=== PATIENT | male | born 1965 | race Two or more races ===

== ENCOUNTER 2020-01-25 09:06 | Inpatient (IN) | payer BC, OTHER ==
[~2020-01-25] VITALS: Ht 175.3 cm; Wt 87.1 kg
[2020-01-25] MEDS ORDERED: ENOXAPARIN SOD 100 MG/1 ML SYRINGE SC ONE (09:45)
[2020-01-25] MEDS ORDERED: methylPREDNISolone SOD SUCC 125 MG/2 ML VL IV ONE (09:45)
[2020-01-25] MEDS ORDERED: ASCORBIC ACID 500 MG TAB PO ONE (09:45)
[2020-01-25] MEDS ORDERED: AZITHROMYCIN 500MG/ 250ML 250 ML IV ONE (09:45)
[2020-01-25] MEDS ORDERED: ZINC SULFATE 220mg CAP or TAB PO ONE (09:45)
[2020-01-25 11:43] LABS: Basophils # (auto) 0 10 ^3/uL (0-0.2); Basophils % (auto) 0.3 % (0.0-2.0); Eosinophils # (auto) 0 10 ^3/uL (0-0.8); Hemoglobin 16.2 g/dL (13.5-17.5); Lymphocytes # (auto) 0.8 10 ^3/uL (0.4-5.4); Lymphocytes % (auto) 17.5 % (10.0-50.0); Mean Corpuscular Hemoglobin 31.6 pg (28.0-32.0); Mean Corpuscular Hgb Conc. 34.5 g/dL (32.0-36.0); Mean Corpuscular Volume 91.6 fL (80.0-100.0); Monocytes # (auto) 0.4 10 ^3/uL (0-1.3); Monocytes % (auto) 8.4 % (0.0-12.0); Neutrophils # (auto) 3.3 10 ^3/uL (1.6-8.6); Neutrophils % (auto) 73.8 % (37.0-80.0); Nucleated Red Blood Cells % 0.5 %; Platelet Count (auto) 281 10^3/uL (140-450); Red Blood Cells 5.13 10^6/uL (4.5-5.90); Red Cell Distribution Width 13.4 % (11.8-14.3); White Blood Cell 4.4 10^3/uL (4.4-10.8)
[2020-01-25 12:02] LABS: Alanine Aminotransferase 149 U/L (16-61); Anion Gap 8 (5-15); Aspartate Aminotransferase 145 U/L (15-37); Blood Urea Nitrogen 16 mg/dL (7-18); Calcium 8.4 mg/dL (8.5-10.1); Carbon Dioxide 23 mmol/L (21-32); Chloride 105 mmol/L (98-107); GFR African American 86 mL/min; GFR Non-African American 71 mL/min; Glucose 104 mg/dL (74-106); Sodium 136 mmol/L (136-145)
[2020-01-25 12:07] LABS: Alkaline Phosphatase 126 U/L (45-117); Bilirubin, Total 0.3 mg/dL (0.2-1.0); Total Protein 7.6 g/dL (6.4-8.2)
[2020-01-25] MEDS ORDERED: LABETALOL HCL 5 MG/ML 4ML SYRINGE IV PRN (14:30)
[2020-01-25] MEDS ORDERED: MORPHINE SULF INJ 2 MG/ML SYRINGE 1ML IV PRN (14:30)
[2020-01-25] MEDS ORDERED: REMDESIVIR PER PHARMACY IV SCH (14:30)
[2020-01-25] MEDS ORDERED: NITROGLYCERIN 0.4 MG SL TAB SL PRN (14:30)
[2020-01-25] MEDS ORDERED: ACETAMINOPHEN 500 MG TAB PO PRN ×2 (14:30)
[2020-01-25] MEDS ORDERED: FLUT1SPR5 (16:42)
[2020-01-25] MEDS ORDERED: PANT40T PO (16:43)
[2020-01-25] MEDS ORDERED: LOSA-69 PO (16:43)
[2020-01-25] MEDS ORDERED: TAM04C PO (16:43)
[2020-01-25 18:30] LABS: Magnesium 2.3 mg/dL (1.6-2.6)
[2020-01-25 18:39] LABS: CRP High Sensitivity 9.74 mg/dL (< 0.3)
[2020-01-25] MEDS: ALBUTEROL SULF HFA 90MCG INH 200DOSE IN SCH (22:00)
[2020-01-25] MEDS: BUDESONIDE (INHALATION) 180 MCG IH IN SCH (22:00)
[2020-01-25] MEDS: ENOXAPARIN SOD 40 MG/0.4 ML SYRINGE SC SCH (22:00)
[2020-01-26 03:32] VITALS: BP 138/87
[2020-01-26] MEDS: ALBUTEROL SULF HFA 90MCG INH 200DOSE IN SCH (06:00)
[2020-01-26 06:23] LABS: Basophils # (auto) 0 10 ^3/uL (0-0.2); Basophils % (auto) 0.4 % (0.0-2.0); Eosinophils # (auto) 0 10 ^3/uL (0-0.8); Hematocrit 45.1 % (41.0-53.0); Hemoglobin 15.5 g/dL (13.5-17.5); Lymphocytes # (auto) 0.5 10 ^3/uL (0.4-5.4); Lymphocytes % (auto) 11.2 % (10.0-50.0); Mean Corpuscular Hemoglobin 31.6 pg (28.0-32.0); Mean Corpuscular Hgb Conc. 34.4 g/dL (32.0-36.0); Mean Corpuscular Volume 91.8 fL (80.0-100.0); Monocytes # (auto) 0.2 10 ^3/uL (0-1.3); Monocytes % (auto) 5.3 % (0.0-12.0); Neutrophils # (auto) 3.4 10 ^3/uL (1.6-8.6); Neutrophils % (auto) 83.1 % (37.0-80.0); Nucleated Red Blood Cells % 0.3 %; Platelet Count (auto) 294 10^3/uL (140-450); Red Blood Cells 4.91 10^6/uL (4.5-5.90); Red Cell Distribution Width 13.5 % (11.8-14.3); White Blood Cell 4.1 10^3/uL (4.4-10.8)
[2020-01-26 06:44] LABS: Albumin 2.8 g/dL (3.4-5.0); Calcium 8.1 mg/dL (8.5-10.1); Potassium 4.2 mmol/L (3.5-5.1)
[2020-01-26 06:46] LABS: BUN/Creatinine Ratio 18.3
[2020-01-26 06:49] LABS: Bilirubin, Total 0.4 mg/dL (0.2-1.0); Total Protein 7.6 g/dL (6.4-8.2)
[2020-01-26] MEDS: BUDESONIDE (INHALATION) 180 MCG IH IN SCH ×2 (07:27→20:29)
[2020-01-26] MEDS: DexAMETHasone SOD PHOS 10MG/1ML VIAL INJ IV SCH (08:38)
[2020-01-26] MEDS: ZINC SULFATE 220mg CAP or TAB PO SCH (08:38)
[2020-01-26] MEDS: CHOLECALCIFEROL (VITD3) 2,000 UNIT CAP PO SCH (08:38)
[2020-01-26] MEDS: ENOXAPARIN SOD 40 MG/0.4 ML SYRINGE SC SCH (08:38)
[2020-01-26] MEDS: FAMOTIDINE 20 MG TAB PO SCH (08:38)
[2020-01-26] MEDS: ASCORBIC ACID 1,000 MG TAB PO SCH (08:38)
[2020-01-26] MEDS ORDERED: cefTRIAXone 1GM/50ML D5W 50 ML IV SCH (09:00)
[2020-01-26] MEDS ORDERED: AZITHROMYCIN 500MG/D5WorNS 250ml IV SCH (10:00)
[2020-01-26] MEDS ORDERED: REMDESIVIR PER PHARMACY IV SCH (12:15)
[2020-01-26] MEDS ORDERED: DEXTROSE (50%) 50ML SYRG IV PRN (12:15)
[2020-01-26] MEDS ORDERED: FUROSEMIDE 20 MG/2 ML VIAL IV ONE ×2 (12:15→12:45)
[2020-01-26] MEDS ORDERED: POTASSIUM CHL 10 Meq TABLET PO ONE (12:15)
[2020-01-26] MEDS ORDERED: IOHEXOL 350 MG/ML 100ML IJ ONE (12:23)
[2020-01-26] MEDS ORDERED: DOXYCYCLINE 100 MG TAB/CAP PO ONE (12:45)
[2020-01-26] MEDS ORDERED: ENOXAPARIN SOD 100 MG/1 ML SYRINGE SC ONE (12:45)
[2020-01-26] MEDS ORDERED: REMDESIVIR 200 MG in NS 210ml LOADING DOSE ADULT IV ONE (17:00)
[2020-01-26] MEDS: InsuLIN REG 1unit/0.01ml Soln (100units/ml) SC SCH ×2 (17:00→22:47)
[2020-01-26] MEDS: ACCU-CHEK COMFORT CURVE STRIP VI SCH ×2 (17:17→22:50)
[2020-01-26] MEDS: TAMSULOSIN HYDROCHLORIDE 0.4 MG CAP PO SCH (18:00)
[2020-01-26] MEDS: ALBUTEROL SULF HFA 90MCG INH 200DOSE IN PRN (20:29)
[2020-01-26 21:56] LABS: Amphetamine Screen, Urine NEGATIVE (NEGATIVE); Barbiturate Scree,Urine NEGATIVE (NEGATIVE); Benzodiazephine Screen, Urine NEGATIVE (NEGATIVE); Cannabinoid Screen, Urine NEGATIVE (NEGATIVE); Cocaine Screen, Urine NEGATIVE (NEGATIVE); Opiate Scree,Urine NEGATIVE (NEGATIVE); Phencyclidine Screen, Urine NEGATIVE (NEGATIVE)
[2020-01-26 22:55] VITALS: BP 125/84
--- NOTE | 2020-01-26 22:55 | NUR ---
Telemetry admit from ER to [facility]- Unit WILDER ELLIOTT admitted to Telemetry unit after SBAR received. Patient oriented to YOLANDA JEONG, primary RN, unit, room, bed, and unit policies regarding patient care and visiting hours. Patient now on continuous telemetry monitoring, tele box # 17 and telemetry reading on arrival to unit is sinus rhythm. Patient is alert and oriented x4. Patient reports a headache (3/10), will medicate patient as ordered by MD. Patient reports mild shortness of breath at rest and more so with exertion. Patient is on 15L/min nonrebreather, SPO2: 94% at this time. No use of accessory muscles noted at this time. Instructed patient on plan of care and encouraged patient to call for assistance as needed, patient verbalized understanding. Bed is locked in lowest position, side rails x 2 are up, and call light is within reach.
[2020-01-27] VITALS (9 sets, daily range): BP systolic 96–127; BP diastolic 54–82
--- NOTE | 2020-01-27 00:30 | NUR ---
IV Insertion IV access obtained, via clean sterile technique by inserting 20 gauge catheter at left forearm after 1 attempt. IV secured properly. No trauma to site. Patient tolerated well. IV removal IV to right forearm DC'd due to IV leaking. IV DC'd with clean sterile technique, catheter fully intact. Pressure dressing applied to site. Patient tolerated well.
[2020-01-27] MEDS: ENOXAPARIN SOD 100 MG/1 ML SYRINGE SC SCH ×3 (01:11→22:10)
[2020-01-27] MEDS: DOXYCYCLINE 100 MG TAB/CAP PO SCH ×3 (01:11→22:10)
[2020-01-27] MEDS ORDERED: ALBUAER3 IN (01:52)
[2020-01-27] MEDS ORDERED: FLUT250M2 INH (01:52)
--- NOTE | 2020-01-27 02:09 | NUR ---
Convalescent Plasma Convalescent plasma finished transfusing at this time. Patient tolerated well. No sign/symptoms of distress noted or verbalized during or post transfusion. No adverse effects reported during transfusion or post transfusion.
[2020-01-27] MEDS: InsuLIN REG 1unit/0.01ml Soln (100units/ml) SC SCH ×4 (06:40→22:12)
[2020-01-27] MEDS: ACCU-CHEK COMFORT CURVE STRIP VI SCH ×4 (06:40→22:05)
[2020-01-27] MEDS: BUDESONIDE (INHALATION) 180 MCG IH IN SCH ×2 (07:16→22:00)
[2020-01-27] MEDS: ALBUTEROL SULF HFA 90MCG INH 200DOSE IN PRN (07:16)
[2020-01-27 07:39] LABS: Magnesium 2.3 mg/dL (1.6-2.6); Potassium 3.8 mmol/L (3.5-5.1)
[2020-01-27 07:46] LABS: Albumin 2.7 g/dL (3.4-5.0); BUN/Creatinine Ratio 27.4; Bilirubin, Total 0.4 mg/dL (0.2-1.0); Calcium 8.2 mg/dL (8.5-10.1); Total Protein 7.2 g/dL (6.4-8.2)
--- NOTE | 2020-01-27 07:50 | NUR ---
OPENING NOTE ASSUMED CARE OF PT. ALERT AND ORIENTED. NO S/S OF SOB/DISTRESS NOTED. BED SET TO LOWEST POSITION/LOCKED, BEDSIDE RAIL UP X2, CALL LIGHT WITHIN REACH. INSTRUCTED PT TO CALL FOR ASSISTANCE. UPDATE ON POC. PATIENT VERBALIZED UNDERSTANDING. WILL CONTINUE TO MONITOR Q1HR AND PRN.
[2020-01-27] MEDS: DexAMETHasone SOD PHOS 10MG/1ML VIAL INJ IV SCH (10:44)
[2020-01-27] MEDS: ZINC SULFATE 220mg CAP or TAB PO SCH (10:45)
[2020-01-27] MEDS: FUROSEMIDE 20 MG/2 ML VIAL IV SCH (10:45)
[2020-01-27] MEDS: FAMOTIDINE 20 MG TAB PO SCH (10:45)
[2020-01-27] MEDS: CHOLECALCIFEROL (VITD3) 2,000 UNIT CAP PO SCH (10:46)
[2020-01-27] MEDS: ASCORBIC ACID 1,000 MG TAB PO SCH (10:46)
[2020-01-27] MEDS: POTASSIUM CHL 10 Meq TABLET PO SCH (10:56)
[2020-01-27] MEDS: REMDESIVIR 100 MG in SODIUM CHL 0.9% 250 ML IV SCH (17:28)
--- NOTE | 2020-01-27 17:30 | NUR ---
REMDESIVIR PRE-INFUSION VS 96/54 [facility] 79 BPM SPO2 95% WILL CONTINUE TO MONITOR.
[2020-01-27] MEDS: TAMSULOSIN HYDROCHLORIDE 0.4 MG CAP PO SCH (17:36)
--- NOTE | 2020-01-27 17:45 | NUR ---
REMDESIVIR 15 MIN-INFUSION VS 95/58 [facility] 75 BPM SPO2 96% NO S/S OF SOB/DISTRESS NOTED. WILL CONTINUE TO MONITOR.
[2020-01-28 05:30] VITALS: BP 117/80
[2020-01-28] MEDS: ACCU-CHEK COMFORT CURVE STRIP VI SCH ×4 (06:32→22:56)
[2020-01-28] MEDS: InsuLIN REG 1unit/0.01ml Soln (100units/ml) SC SCH ×4 (06:33→22:56)
[2020-01-28] MEDS: BUDESONIDE (INHALATION) 180 MCG IH IN SCH ×2 (07:20→19:58)
[2020-01-28 08:25] VITALS: BP 114/77
[2020-01-28] MEDS: ZINC SULFATE 220mg CAP or TAB PO SCH (09:56)
[2020-01-28] MEDS: FUROSEMIDE 20 MG/2 ML VIAL IV SCH (09:56)
[2020-01-28] MEDS: DexAMETHasone SOD PHOS 10MG/1ML VIAL INJ IV SCH (09:56)
[2020-01-28] MEDS: POTASSIUM CHL 10 Meq TABLET PO SCH (09:57)
[2020-01-28] MEDS: DOXYCYCLINE 100 MG TAB/CAP PO SCH ×2 (10:00→22:56)
[2020-01-28] MEDS: FAMOTIDINE 20 MG TAB PO SCH (10:00)
[2020-01-28] MEDS: ASCORBIC ACID 1,000 MG TAB PO SCH (10:00)
[2020-01-28] MEDS: ENOXAPARIN SOD 100 MG/1 ML SYRINGE SC SCH ×2 (10:01→22:57)
[2020-01-28] MEDS: CHOLECALCIFEROL (VITD3) 2,000 UNIT CAP PO SCH (10:01)
--- NOTE | 2020-01-28 12:04 | NUR ---
Nutrition Assessment Est energy needs 4645-5130 kcal (18-20 kcal/kg BW 99.2kg) Est protein needs 73-95g (1-1.3g/kg IBW 73kg) Will monitor and reassess prn. Addendum: 01/28/20 at [address] Amended: Links added.
[2020-01-28 12:21] VITALS: BP 111/72
[2020-01-28] MEDS ORDERED: THIAMINE HCL 100 MG TAB PO ONE (13:30)
[2020-01-28] MEDS: ALBUTEROL SULF HFA 90MCG INH 200DOSE IN PRN ×2 (15:57→19:58)
[2020-01-28 16:44] VITALS: BP 118/76
[2020-01-28] MEDS: REMDESIVIR 100 MG in SODIUM CHL 0.9% 250 ML IV SCH (17:30)
--- NOTE | 2020-01-28 17:30 | NUR ---
REMDESIVIR PRE-INFUSION VS 118/76 [facility] 81 BPM SPO2 98% WILL CONTINUE TO MONITOR.
[2020-01-28] MEDS: TAMSULOSIN HYDROCHLORIDE 0.4 MG CAP PO SCH (17:41)
--- NOTE | 2020-01-28 17:45 | NUR ---
REMDESIVIR 15 MIN-INFUSION VS 110/76 [facility] 74 BPM SPO2 92% NO S/S OF SOB/DISTRESS NOTED. WILL CONTINUE TO MONITOR.
[2020-01-28 21:46] VITALS: BP 124/77
[2020-01-29] MEDS: ONDANSETRON HCL 4 MG/2 ML VIAL IV PRN ×3 (00:20→11:04)
[2020-01-29 05:00] VITALS: BP 115/71
[2020-01-29 06:10] LABS: Albumin 2.6 g/dL (3.4-5.0); Calcium 8.2 mg/dL (8.5-10.1); Magnesium 2.7 mg/dL (1.6-2.6); Potassium 3.7 mmol/L (3.5-5.1)
[2020-01-29 06:13] LABS: Bilirubin, Total 0.6 mg/dL (0.2-1.0); Total Protein 6.8 g/dL (6.4-8.2)
--- NOTE | 2020-01-29 06:50 | NUR ---
Patient reporting 6/10 pain to chest only when coughing. Refusing [place], requesting Tylenol, will administer as ordered (see emar) and continue to monitor.
[2020-01-29] MEDS: InsuLIN REG 1unit/0.01ml Soln (100units/ml) SC SCH ×4 (06:53→23:30)
[2020-01-29] MEDS: ACCU-CHEK COMFORT CURVE STRIP VI SCH ×4 (06:53→23:16)
--- NOTE | 2020-01-29 07:20 | NUR ---
Patient lying in bed, awake and alert, no s/s of distress. Call light within reach. Care endorsed to genevieve CRUM. Addendum: 01/29/20 at 0754 by YRIS CONTRERAS RN RN ADDITION: Patient maintaining 88% - 90% pulse oxygenation throughout shift on 12 liters/minute via nonrebreather, unable to titrate oxygen down during NOC shift, genevieve CRUM aware.
[2020-01-29 07:38] LABS: BUN/Creatinine Ratio 37.9
[2020-01-29] MEDS: BUDESONIDE (INHALATION) 180 MCG IH IN SCH ×2 (07:45→20:24)
[2020-01-29 09:00] VITALS: BP 121/74
[2020-01-29] MEDS: DexAMETHasone SOD PHOS 10MG/1ML VIAL INJ IV SCH (10:28)
[2020-01-29] MEDS: FUROSEMIDE 20 MG/2 ML VIAL IV SCH (10:28)
[2020-01-29] MEDS: THIAMINE HCL 100 MG TAB PO SCH (10:28)
[2020-01-29] MEDS: ASCORBIC ACID 1,000 MG TAB PO SCH (10:29)
[2020-01-29] MEDS: FAMOTIDINE 20 MG TAB PO SCH (10:29)
[2020-01-29] MEDS: DOXYCYCLINE 100 MG TAB/CAP PO SCH (10:29)
[2020-01-29] MEDS: POTASSIUM CHL 10 Meq TABLET PO SCH (10:29)
[2020-01-29] MEDS: ZINC SULFATE 220mg CAP or TAB PO SCH (10:29)
[2020-01-29] MEDS: CHOLECALCIFEROL (VITD3) 2,000 UNIT CAP PO SCH (10:30)
[2020-01-29] MEDS: ENOXAPARIN SOD 100 MG/1 ML SYRINGE SC SCH ×2 (10:30→23:15)
[2020-01-29] MEDS: Ensure HIGH Protein Vanilla 8oz Bottle PO SCH ×2 (12:00→18:06)
[2020-01-29 13:00] VITALS: BP 122/74
[2020-01-29 17:00] VITALS: BP 117/79
--- NOTE | 2020-01-29 17:00 | NUR ---
REMDESIVIR PRE-INFUSION VS 117/79 [facility] 85 BPM SPO2 91% WILL CONTINUE TO MONITOR.
[2020-01-29] MEDS: REMDESIVIR 100 MG in SODIUM CHL 0.9% 250 ML IV SCH (17:07)
[2020-01-29] MEDS: TAMSULOSIN HYDROCHLORIDE 0.4 MG CAP PO SCH (17:07)
--- NOTE | 2020-01-29 17:15 | NUR ---
REMDESIVIR 15 MIN-INFUSION VS 122/86 [facility] 82 BPM SPO2 93% NO S/S OF SOB/DISTRESS NOTED. WILL CONTINUE TO MONITOR.
[2020-01-29] MEDS: PIPERACILLIN-TAZOB 3.375GM 100 ML IV SCH ×2 (18:06→23:55)
[2020-01-29] MEDS: ALBUTEROL SULF HFA 90MCG INH 200DOSE IN PRN (20:24)
[2020-01-29 22:00] VITALS: BP 121/72
--- NOTE | 2020-01-30 03:00 | NUR ---
Entered room after patient pressed the call light stating he "couldn't catch his breath". Patient sitting up in bed at 90 degrees, respirations at 28 breaths per minute, pulse oxygenation maintaining at 84-86%. Patient appeared anxious and was able to slow his respirations down to 20 breaths per minute after coaching, oxygenation also marlen to 90%-93%. Patient requested pain medication for chest pain, reports again that pain is only on deep inspiration and came on after excessive coughing. Will medicate for pain as ordered (see emar) and continue to monitor.
[2020-01-30] MEDS: MORPHINE SULF INJ 2 MG/ML SYRINGE 1ML IV PRN ×2 (03:20→18:04)
[2020-01-30 05:00] VITALS: BP 117/73
[2020-01-30] MEDS: PIPERACILLIN-TAZOB 3.375GM 100 ML IV SCH ×3 (06:27→18:10)
[2020-01-30] MEDS: ACCU-CHEK COMFORT CURVE STRIP VI SCH ×4 (06:27→22:06)
[2020-01-30 06:33] LABS: Potassium 3.9 mmol/L (3.5-5.1)
[2020-01-30] MEDS: InsuLIN REG 1unit/0.01ml Soln (100units/ml) SC SCH ×4 (06:41→22:10)
[2020-01-30 06:50] LABS: Albumin 2.5 g/dL (3.4-5.0); BUN/Creatinine Ratio 33.3; Bilirubin, Total 0.8 mg/dL (0.2-1.0); Calcium 8.2 mg/dL (8.5-10.1)
[2020-01-30] MEDS: BUDESONIDE (INHALATION) 180 MCG IH IN SCH ×2 (06:50→19:38)
--- NOTE | 2020-01-30 07:15 | NUR ---
Patient lying in bed, awake and alert, no s/s of distress. Call light within reach. Care endorsed to dayshift RN.
[2020-01-30 08:00] VITALS: BP 123/74
[2020-01-30] MEDS: Ensure HIGH Protein Vanilla 8oz Bottle PO SCH ×3 (08:00→18:02)
[2020-01-30] MEDS: ZINC SULFATE 220mg CAP or TAB PO SCH (10:00)
[2020-01-30] MEDS: CHOLECALCIFEROL (VITD3) 2,000 UNIT CAP PO SCH (10:00)
[2020-01-30] MEDS: FAMOTIDINE 20 MG TAB PO SCH (10:00)
[2020-01-30] MEDS: THIAMINE HCL 100 MG TAB PO SCH (10:00)
[2020-01-30] MEDS: ASCORBIC ACID 1,000 MG TAB PO SCH (10:00)
[2020-01-30] MEDS: DexAMETHasone SOD PHOS 10MG/1ML VIAL INJ IV SCH (10:25)
[2020-01-30 10:26] LABS: Hepatitis B Surface Antibody Negative
[2020-01-30] MEDS: FUROSEMIDE 20 MG/2 ML VIAL IV SCH (10:27)
[2020-01-30] MEDS: POTASSIUM CHL 10 Meq TABLET PO SCH (10:28)
[2020-01-30] MEDS: ENOXAPARIN SOD 100 MG/1 ML SYRINGE SC SCH ×2 (10:29→21:43)
[2020-01-30 10:59] LABS: Hepatitis A Total Antibody Positive
[2020-01-30 12:00] VITALS: BP 121/74
[2020-01-30 12:44] LABS: Hepatitis B Core Total AB Negative; Hepatitis B Surface Antigen Negative (Negative)
[2020-01-30 12:45] LABS: Hepatitis C Antibody Negative (Negative)
[2020-01-30 17:00] VITALS: BP 120/71
[2020-01-30] MEDS: REMDESIVIR 100 MG in SODIUM CHL 0.9% 250 ML IV SCH (17:30)
--- NOTE | 2020-01-30 17:30 | NUR ---
REMDESIVIR PRE-INFUSION VS 120/71 [facility] 77 BPM SPO2 93% WILL CONTINUE TO MONITOR.
--- NOTE | 2020-01-30 17:45 | NUR ---
REMDESIVIR 15 MIN-INFUSION VS 110/75 [facility] 78 BPM SPO2 91% NO S/S OF SOB/DISTRESS NOTED. WILL CONTINUE TO MONITOR.
[2020-01-30] MEDS: TAMSULOSIN HYDROCHLORIDE 0.4 MG CAP PO SCH (17:56)
--- NOTE | 2020-01-30 19:25 | NUR ---
Opening Shift Note Assumed care of patient, awake and alert. On 15 L NRB. Updated on POC and to call for assist PRN, patient verbalized understanding. Bed in lowest and locked position, call light within reach, will continue to monitor for changes Q1hr and PRN.
--- NOTE | 2020-01-30 19:30 | NUR ---
REMDESIVIR POST-INFUSION VS 118/75 [facility] 85 BPM SPO2 92% WILL CONTINUE TO MONITOR.
[2020-01-30] MEDS: ALBUTEROL SULF HFA 90MCG INH 200DOSE IN PRN (19:39)
[2020-01-30 22:00] VITALS: BP 115/77
[2020-01-31] MEDS: PIPERACILLIN-TAZOB 3.375GM 100 ML IV SCH ×4 (00:22→17:47)
[2020-01-31 05:51] VITALS: BP 116/77
--- NOTE | 2020-01-31 06:00 | NUR ---
Respiratory note: PT SPO2 IN THE LOW 80'S WITH 15L NRB. PT PLACED ON ADDITIONAL O2 OF 15L OXYMIZER SPO2 INCREASED TO 88%. PT WAS EDUCATED ON THE IMPORTANCE OF PRONING. PT STATED "ABSOLUTELY NOT I WONT BE ABLE TO BREATH." WILL CONTINUE TO MONITOR PT.
--- NOTE | 2020-01-31 06:05 | NUR ---
Patient desaturated to 80's when bed linens changed. Maintained O2 at 15 Lpm/NRB, head elevated to 90 degrees, O2 Sat coming up to 87%-89%. Will continue to monitor
[2020-01-31] MEDS: ACCU-CHEK COMFORT CURVE STRIP VI SCH ×4 (06:15→21:49)
[2020-01-31] MEDS: InsuLIN REG 1unit/0.01ml Soln (100units/ml) SC SCH ×4 (06:16→21:56)
[2020-01-31] MEDS: Ensure HIGH Protein Vanilla 8oz Bottle PO SCH ×3 (08:00→17:47)
[2020-01-31 08:17] LABS: Basophils # (auto) 0 10 ^3/uL (0-0.2); Basophils % (auto) 0.1 % (0.0-2.0); Eosinophils # (auto) 0 10 ^3/uL (0-0.8); Eosinophils % (auto) 0.1 % (0.0-7.0); Hemoglobin 16.1 g/dL (13.5-17.5); Lymphocytes # (auto) 1.1 10 ^3/uL (0.4-5.4); Lymphocytes % (auto) 9.5 % (10.0-50.0); Mean Corpuscular Hemoglobin 30.8 pg (28.0-32.0); Mean Corpuscular Hgb Conc. 33.6 g/dL (32.0-36.0); Mean Corpuscular Volume 91.5 fL (80.0-100.0); Monocytes # (auto) 0.9 10 ^3/uL (0-1.3); Monocytes % (auto) 7.6 % (0.0-12.0); Neutrophils % (auto) 82.7 % (37.0-80.0); Nucleated Red Blood Cells % 0.1 %; Red Blood Cells 5.24 10^6/uL (4.5-5.90); Red Cell Distribution Width 13.5 % (11.8-14.3); White Blood Cell 12.1 10^3/uL (4.4-10.8)
[2020-01-31 08:35] LABS: Albumin 2.4 g/dL (3.4-5.0); Anion Gap 9 (5-15); Blood Urea Nitrogen 35 mg/dL (7-18); Calcium 8.4 mg/dL (8.5-10.1); Carbon Dioxide 26 mmol/L (21-32); Chloride 103 mmol/L (98-107); Glucose 118 mg/dL (74-106); Magnesium 2.7 mg/dL (1.6-2.6); Potassium 4.1 mmol/L (3.5-5.1); Sodium 138 mmol/L (136-145)
[2020-01-31 09:00] VITALS: BP 114/76
[2020-01-31 09:01] LABS: Alanine Aminotransferase 66 U/L (16-61); Alkaline Phosphatase 113 U/L (45-117); Aspartate Aminotransferase 28 U/L (15-37); BUN/Creatinine Ratio 27.6; Bilirubin, Total 0.7 mg/dL (0.2-1.0); CRP High Sensitivity 9.18 mg/dL (< 0.3); GFR African American 76 mL/min; GFR Non-African American 63 mL/min; Lactate Dehydrogenase 598 U/L (87-241); Total Protein 7.1 g/dL (6.4-8.2)
[2020-01-31 09:02] LABS: Platelet Count (auto) 618 10^3/uL (140-450)
--- NOTE | 2020-01-31 11:00 | NUR ---
Space Physicist at bedside MD Jesus at bedside aware of patient's status. Patient refusing proning or turning on his side stating "is very uncomfortable" despite education provided regarding benefits of treatment. Cont to monitor
[2020-01-31] MEDS: DexAMETHasone SOD PHOS 10MG/1ML VIAL INJ IV SCH (11:56)
[2020-01-31] MEDS: ZINC SULFATE 220mg CAP or TAB PO SCH (11:57)
[2020-01-31] MEDS: CHOLECALCIFEROL (VITD3) 2,000 UNIT CAP PO SCH (11:57)
[2020-01-31] MEDS: FAMOTIDINE 20 MG TAB PO SCH (11:57)
[2020-01-31] MEDS: POTASSIUM CHL 10 Meq TABLET PO SCH (11:57)
[2020-01-31] MEDS: ASCORBIC ACID 1,000 MG TAB PO SCH (11:57)
[2020-01-31] MEDS: THIAMINE HCL 100 MG TAB PO SCH (11:57)
[2020-01-31] MEDS: ENOXAPARIN SOD 100 MG/1 ML SYRINGE SC SCH ×2 (11:58→21:50)
[2020-01-31] MEDS: FUROSEMIDE 20 MG/2 ML VIAL IV SCH (12:00)
[2020-01-31 13:00] VITALS: BP 114/82
--- NOTE | 2020-01-31 14:07 | NUR ---
Nutrition Followup Notes Pt wt is 96.7 kg Pt is positive for COVID, in isolation. Pt is with a Cardiac 2gNa diet, appetite is poor aeb ave <30% PO intake over 3 days. Per notes, pt is with no s/s of distress or pain. Est energy needs 9902-3462 kcal (18-20 kcal/kg BW 99.2kg) Est protein needs 73-95g (1-1.3g/kg IBW 73kg) Will monitor and reassess prn. LABS: BUN 35 H, GLUC 118 H, CA 8.4 H, ALB 2.4 L GI: Pt had 1 BM on 01/29 per RN doc BS: 17 mod risk. Refer to wound assessment report for further details PES: Obesity r/t caloric intake in excess of needs aeb pt with a BMI of 32.3kg/m2 Comments Will continue to monitor PO status, skin status, pertinent labs and weight trends. Will f/u in 3-5 days 1) Continue to monitor po intake, labs ,skin 2) Refer pt to OPD on DC 3) Continue current plan of care
[2020-01-31] MEDS: TAMSULOSIN HYDROCHLORIDE 0.4 MG CAP PO SCH (17:47)
--- NOTE | 2020-01-31 18:20 | NUR ---
Patient assisted up to bedside commode tolerating well saturation 92% on non rebreather and Oxymizer. Call light within reach
--- NOTE | 2020-01-31 18:45 | NUR ---
Patient continues to refuse proning despite multiple times encouraging him. Call light within reach.
--- NOTE | 2020-01-31 19:00 | NUR ---
Patient care endorsed endorsed care to Cele calvert. Patient sitting up in bed no acute distress or sob noted currently on non rebreather and oxymizer saturation 92%. Call light within reach.
--- NOTE | 2020-01-31 19:30 | NUR ---
Opening Shift Note Assumed care of patient. Patient is awake and alert, oriented X 4. No S/S of respiratory distress. Respirations are not labored. Patient denies pain at this time. Bed placed in lowest locked position, bed rails up x 2, and call light within reach. POC discussed; patient instructed to call for assistance PRN. Will continue to monitor for changes Q1hr and PRN.
[2020-01-31 20:00] VITALS: BP 111/76
[2020-01-31 22:00] VITALS: BP 111/76
[2020-01-31] MEDS: ALBUTEROL SULF HFA 90MCG INH 200DOSE IN PRN (22:40)
[2020-01-31] MEDS: BUDESONIDE (INHALATION) 180 MCG IH IN SCH (22:40)
[2020-02-01] VITALS (11 sets, daily range): BP systolic 95–117; BP diastolic 52–82
[2020-02-01] MEDS: PIPERACILLIN-TAZOB 3.375GM 100 ML IV SCH ×5 (01:39→23:30)
--- NOTE | 2020-02-01 04:55 | NUR ---
CC Convalescence plasma infusion started at 0432. Patient's baseline VS WNL. Will continue to monitor. No s/s of adverse reaction noted or reported after 15 min of infusion.
--- NOTE | 2020-02-01 05:35 | NUR ---
Convalescent Plasma Convalescent plasma finished transfusing at 0531. Patient tolerated well. No s/s of adverse reaction noted or reported. VS is WNL BP 111/69 HR 70, RR19. Will continue to monitor.
[2020-02-01] MEDS: ACCU-CHEK COMFORT CURVE STRIP VI SCH ×4 (06:46→22:23)
[2020-02-01] MEDS: InsuLIN REG 1unit/0.01ml Soln (100units/ml) SC SCH ×4 (06:47→22:00)
[2020-02-01 07:51] LABS: Albumin 2.4 g/dL (3.4-5.0); Calcium 8.1 mg/dL (8.5-10.1)
[2020-02-01 07:53] LABS: BUN/Creatinine Ratio 32.1
[2020-02-01 07:54] LABS: Basophils # (auto) 0 10 ^3/uL (0-0.2); Eosinophils # (auto) 0 10 ^3/uL (0-0.8); Mean Corpuscular Hemoglobin 31.4 pg (28.0-32.0); Mean Corpuscular Hgb Conc. 34.6 g/dL (32.0-36.0)
[2020-02-01 07:56] LABS: Bilirubin, Total 0.6 mg/dL (0.2-1.0)
[2020-02-01 07:57] LABS: Hematocrit 43.9 % (41.0-53.0); Hemoglobin 15.2 g/dL (13.5-17.5); Lymphocytes # (auto) 0.5 10 ^3/uL (0.4-5.4); Lymphocytes % (auto) 5.6 % (10.0-50.0); Mean Corpuscular Volume 90.8 fL (80.0-100.0); Monocytes # (auto) 0.3 10 ^3/uL (0-1.3); Monocytes % (auto) 3.8 % (0.0-12.0); Neutrophils # (auto) 7.4 10 ^3/uL (1.6-8.6); Neutrophils % (auto) 90.6 % (37.0-80.0); Nucleated Red Blood Cells % 0.3 %; Platelet Count (auto) 584 10^3/uL (140-450); Red Blood Cells 4.84 10^6/uL (4.5-5.90); Red Cell Distribution Width 13.2 % (11.8-14.3); White Blood Cell 8.2 10^3/uL (4.4-10.8)
[2020-02-01] MEDS: Ensure HIGH Protein Vanilla 8oz Bottle PO SCH ×3 (08:00→18:00)
[2020-02-01] MEDS: BUDESONIDE (INHALATION) 180 MCG IH IN SCH ×2 (10:00→20:16)
[2020-02-01] MEDS: ZINC SULFATE 220mg CAP or TAB PO SCH (10:30)
[2020-02-01] MEDS: FUROSEMIDE 20 MG/2 ML VIAL IV SCH (10:30)
[2020-02-01] MEDS: DexAMETHasone SOD PHOS 10MG/1ML VIAL INJ IV SCH (10:30)
[2020-02-01] MEDS: THIAMINE HCL 100 MG TAB PO SCH (10:30)
[2020-02-01] MEDS: FAMOTIDINE 20 MG TAB PO SCH (10:31)
[2020-02-01] MEDS: POTASSIUM CHL 10 Meq TABLET PO SCH (10:31)
[2020-02-01] MEDS: ASCORBIC ACID 1,000 MG TAB PO SCH (10:31)
[2020-02-01] MEDS: CHOLECALCIFEROL (VITD3) 2,000 UNIT CAP PO SCH (10:32)
[2020-02-01] MEDS: ENOXAPARIN SOD 100 MG/1 ML SYRINGE SC SCH ×2 (10:32→22:27)
--- NOTE | 2020-02-01 11:45 | NUR ---
at bedside MD Butler at bedside aware of patient's status. Patient currently on 15L non rebreather and 15L oxymizer at this time sat 94%. Patient encouraged to prone multiple times, MD Butler had long discussion with him regarding benefits of proning but patient refusing at this time. Will continue to encourage patient. Cont to monitor
--- NOTE | 2020-02-01 12:13 | NUR ---
Patient removed non rebreather states "I don't feel like I need more oxygen" saturation noted at >88% at 15L oxymizer. Patient agreed to turn to his right side at this time. Patient refusing proning at this time but states "later". R.T. notified and per Disha as long as pt remains >88% is okay to be off the non rebreather. Non rebreather at bedside available if needed at bedside. Will cont to monitor
--- NOTE | 2020-02-01 13:22 | NUR ---
Patient placed back on non rebreather at 15L after he was noted to be 81% on only 15L oxymizer. Patient states he feels "a little sob". Patient saturation >91% after non rebreather at 15L and oxymizer at 15L. Cont to monitor closely
[2020-02-01] MEDS ORDERED: FUROSEMIDE 20 MG/2 ML VIAL IV ONE (14:15)
--- NOTE | 2020-02-01 15:31 | NUR ---
Patient tolerating Remdesivir well no acute distress or sob noted BP 124/76 HR 71
[2020-02-01] MEDS: TAMSULOSIN HYDROCHLORIDE 0.4 MG CAP PO SCH (18:00)
--- NOTE | 2020-02-01 19:45 | NUR ---
Opening Shift Note Assumed care of patient, awake and alert. No S/S of distress/SOB or pain noted. Instructed on POC and to call for assist PRN. Bed is in lowest locked position with bed rails up x2 and call light is within reach of the patient.
[2020-02-01] MEDS: ALBUTEROL SULF HFA 90MCG INH 200DOSE IN PRN (20:17)
[2020-02-02] MEDS: PIPERACILLIN-TAZOB 3.375GM 100 ML IV SCH ×4 (05:43→23:34)
[2020-02-02 06:27] VITALS: BP 100/64
[2020-02-02] MEDS: ACCU-CHEK COMFORT CURVE STRIP VI SCH ×4 (06:36→22:20)
[2020-02-02] MEDS: InsuLIN REG 1unit/0.01ml Soln (100units/ml) SC SCH ×4 (06:38→22:27)
[2020-02-02] MEDS: BUDESONIDE (INHALATION) 180 MCG IH IN SCH ×2 (07:45→20:49)
[2020-02-02] MEDS: Ensure HIGH Protein Vanilla 8oz Bottle PO SCH ×3 (08:00→17:47)
[2020-02-02 09:00] VITALS: BP 108/70
[2020-02-02] MEDS: ALBUTEROL SULF HFA 90MCG INH 200DOSE IN PRN ×2 (09:29→20:49)
[2020-02-02] MEDS: THIAMINE HCL 100 MG TAB PO SCH (10:01)
[2020-02-02] MEDS: DexAMETHasone SOD PHOS 10MG/1ML VIAL INJ IV SCH (10:01)
[2020-02-02] MEDS: ZINC SULFATE 220mg CAP or TAB PO SCH (10:01)
[2020-02-02] MEDS: POTASSIUM CHL 10 Meq TABLET PO SCH (10:01)
[2020-02-02] MEDS: FUROSEMIDE 40 MG/4 ML VIAL IV SCH (10:01)
[2020-02-02] MEDS: FAMOTIDINE 20 MG TAB PO SCH (10:02)
[2020-02-02] MEDS: ASCORBIC ACID 1,000 MG TAB PO SCH (10:02)
[2020-02-02] MEDS: ENOXAPARIN SOD 100 MG/1 ML SYRINGE SC SCH ×2 (10:03→22:20)
[2020-02-02] MEDS: CHOLECALCIFEROL (VITD3) 2,000 UNIT CAP PO SCH (10:03)
--- NOTE | 2020-02-02 10:24 | NUR ---
Patient agreeing to prone at this time. Patient assisted completely on his stomach and saturation noted to have decreased to 82%. After patient was instructed to cough and deep breath multiple times saturation slowly improved up to 91%. Patient encouraged to remain prone. Currently on 15L oxymizer and 15L non rebreather. Will cont to monitor.
--- NOTE | 2020-02-02 10:40 | NUR ---
Patient is prone and maintaining oxygen at 94%. Cont to monitor
--- NOTE | 2020-02-02 11:15 | NUR ---
at bedside MD Jesus at bedside, pt laying on his back now saturation 92%. Patient states he will try proning again later. Per MD Jesus, titrate patient's oxygen. Patient decreased to <90% pt placed back on 15L oxymizer and 15L non rebreather. Will cont to monitor
--- NOTE | 2020-02-02 12:38 | NUR ---
Spoke to patient's after password verified and updated her on POC and status. Cont to monitor.
[2020-02-02 13:00] VITALS: BP 100/67
[2020-02-02 16:39] VITALS: BP 116/74
[2020-02-02] MEDS: TAMSULOSIN HYDROCHLORIDE 0.4 MG CAP PO SCH (17:47)
--- NOTE | 2020-02-02 17:47 | NUR ---
Patient encouraged and agreed to prone at this time. Patient saturation improved to 96% and sustaining at this level. Will cont to monitor.
--- NOTE | 2020-02-02 19:00 | NUR ---
Patient care endorsed endorsed care to Caitlyn calvert, patient laying on his back again in bed no acute distress. Saturation noted 94%. Call light within reach.
[2020-02-02 22:00] VITALS: BP 109/78
[2020-02-03] MEDS: PIPERACILLIN-TAZOB 3.375GM 100 ML IV SCH ×4 (05:30→23:41)
[2020-02-03 06:06] VITALS: BP 106/73
[2020-02-03] MEDS: ACCU-CHEK COMFORT CURVE STRIP VI SCH ×4 (06:49→21:56)
[2020-02-03] MEDS: InsuLIN REG 1unit/0.01ml Soln (100units/ml) SC SCH ×4 (06:49→21:54)
--- NOTE | 2020-02-03 07:50 | NUR ---
OPENING SHIFT NOTE: PATIENT O2 SAT IN THE 70'S ON 15LOXYMIZER, 15LNON-REBREATHER. PATIENT A/OX4, SHORT OF BREATH. PATIENT ENCOURAGED TO PRONE, EXPRESSED HE HAD TO HAVE A BOWEL MOVEMENT. ASSISTED PATIENT ONTO BED SHEIKH. CLEANED MARYANN AREA, SMALL SEMI-SOLID REDDISH BROWN BM NOTED. PATIENT ABLE TO TURN PRONE, SAT'S 83% RT PAGED WILL CONTINUE TO MONITOR.
--- NOTE | 2020-02-03 08:13 | NUR ---
Respiratory note: NURSE PAGED FOR PT DESAT, PT SPO2 IN THE MID 80S. PT ON 15L NRB AND 15L OXYMIZER. PT HAD JUST HAD A BOWEL MOVEMENT. PT REFUSED INHALER TREATMENTS AT THIS TIME. INSTRUCTED PT TO REMAIN IN PRONE POSITION AND TO TAKE DEEP BREATHS. PT SATURATION NOW 90%. WILL CONTINUE TO MONITOR.
[2020-02-03] MEDS: MORPHINE SULF INJ 2 MG/ML SYRINGE 1ML IV PRN (08:44)
[2020-02-03 10:00] VITALS: BP 107/74
--- NOTE | 2020-02-03 10:10 | NUR ---
Patient on 15L non-rebreather only, no oxymizer and is sating 93% spo2. Reports feeling better.
--- NOTE | 2020-02-03 10:41 | NUR ---
MD SHAIKH MARRERO.
[2020-02-03] MEDS: BUDESONIDE (INHALATION) 180 MCG IH IN SCH ×2 (10:43→18:03)
[2020-02-03] MEDS ORDERED: guaiFENesin 200 MG/10 ML UD GT PRN (10:45)
[2020-02-03] MEDS: HYDROcodone-ACET 5/325MG TAB PO PRN (11:00)
[2020-02-03] MEDS: Ensure HIGH Protein Vanilla 8oz Bottle PO SCH ×3 (11:34→19:00)
[2020-02-03] MEDS: DexAMETHasone SOD PHOS 10MG/1ML VIAL INJ IV SCH (11:35)
[2020-02-03] MEDS: THIAMINE HCL 100 MG TAB PO SCH (11:35)
[2020-02-03] MEDS: POTASSIUM CHL 10 Meq TABLET PO SCH (11:36)
[2020-02-03] MEDS: FUROSEMIDE 40 MG/4 ML VIAL IV SCH (11:36)
[2020-02-03] MEDS: ENOXAPARIN SOD 100 MG/1 ML SYRINGE SC SCH ×2 (11:36→21:56)
[2020-02-03] MEDS: CHOLECALCIFEROL (VITD3) 2,000 UNIT CAP PO SCH (11:36)
[2020-02-03] MEDS: FAMOTIDINE 20 MG TAB PO SCH (11:36)
[2020-02-03] MEDS: ZINC SULFATE 220mg CAP or TAB PO SCH (11:36)
[2020-02-03] MEDS: ASCORBIC ACID 1,000 MG TAB PO SCH (11:36)
--- NOTE | 2020-02-03 11:37 | NUR ---
1200 INSULIN HELD, PATIENT NOTED TO HAVE POOR INTAKE TODAY, BLOOD SUGAR BORDERLINE AT 132.
[2020-02-03] MEDS: ALBUTEROL SULF HFA 90MCG INH 200DOSE IN PRN ×2 (12:10→19:15)
--- NOTE | 2020-02-03 15:38 | NUR ---
Nutrition Followup Notes Pt wt is 74.6 kg Pt is positive for COVID, in isolation. Pt is on a oxymizer with a Cardiac 2gNa diet, appetite is poor aeb ave 20% PO intake over 3 meals. Per notes, pt is with no s/s of distress or pain. Est energy needs 2813-2555 kcal (18-20 kcal/kg BW 99.2kg) Est protein needs 73-95g (1-1.3g/kg IBW 73kg) Will monitor and reassess prn. LABS: BUN 34 H, GLUC CA 8.1 H, ALB 2.4 L GI: Pt had 1 BM today per RN doc BS: 17 mod risk. Refer to wound assessment report for further details PES: Obesity r/t caloric intake in excess of needs aeb pt with a BMI of 32.3kg/m2 Comments Will continue to monitor PO status, skin status, pertinent labs and weight trends. Will f/u in 3-5 days 1) Continue to monitor po intake, labs ,skin 2) Refer pt to OPD on DC 3) Continue current plan of care
[2020-02-03 16:30] VITALS: BP 107/64
[2020-02-03] MEDS: TAMSULOSIN HYDROCHLORIDE 0.4 MG CAP PO SCH (17:46)
--- NOTE | 2020-02-03 19:00 | NUR ---
CARE ENDORSED TO NOC RN.
--- NOTE | 2020-02-03 19:24 | NUR ---
Opening Shift Note Assumed care of patient, awake and alert x 4. Patient on 15 l/min non-rebreather mask. Bed is in lowest position and locked. Call light within reach. Board updated. Tele box number matches monitor leads in correct placement. Instructed on POC and to call for assist PRN, will continue to monitor for changes Q1hr and PRN.
[2020-02-03 22:43] VITALS: BP 113/72
[2020-02-04 05:32] VITALS: BP 104/75
[2020-02-04] MEDS: PIPERACILLIN-TAZOB 3.375GM 100 ML IV SCH ×4 (06:04→23:12)
[2020-02-04] MEDS: ACCU-CHEK COMFORT CURVE STRIP VI SCH ×4 (06:04→21:56)
[2020-02-04] MEDS: InsuLIN REG 1unit/0.01ml Soln (100units/ml) SC SCH ×4 (06:06→21:57)
[2020-02-04] MEDS: HYDROcodone-ACET 5/325MG TAB PO PRN ×2 (06:09→20:09)
--- NOTE | 2020-02-04 07:15 | NUR ---
Opening Shift Note Assumed care of patient, awake and alert x 4. Patient on 15 l/min non-rebreather mask. Bed is in lowest position and locked. Call light within reach. Instructed on POC and to call for assist PRN, will continue to monitor for changes Q1hr and PRN.
[2020-02-04 09:00] VITALS: BP 134/69
[2020-02-04] MEDS: Ensure HIGH Protein Vanilla 8oz Bottle PO SCH ×3 (09:55→18:40)
[2020-02-04] MEDS: FUROSEMIDE 40 MG/4 ML VIAL IV SCH (09:56)
[2020-02-04] MEDS: POTASSIUM CHL 10 Meq TABLET PO SCH (09:56)
[2020-02-04] MEDS: DexAMETHasone SOD PHOS 10MG/1ML VIAL INJ IV SCH (09:56)
[2020-02-04] MEDS: THIAMINE HCL 100 MG TAB PO SCH (09:56)
[2020-02-04] MEDS: ZINC SULFATE 220mg CAP or TAB PO SCH (09:56)
[2020-02-04] MEDS: ENOXAPARIN SOD 100 MG/1 ML SYRINGE SC SCH ×2 (09:57→21:56)
[2020-02-04] MEDS: CHOLECALCIFEROL (VITD3) 2,000 UNIT CAP PO SCH (09:57)
[2020-02-04] MEDS: FAMOTIDINE 20 MG TAB PO SCH (09:57)
[2020-02-04] MEDS: ASCORBIC ACID 1,000 MG TAB PO SCH (09:57)
[2020-02-04] MEDS: BUDESONIDE (INHALATION) 180 MCG IH IN SCH ×2 (10:00→22:39)
[2020-02-04] MEDS: MORPHINE SULF INJ 2 MG/ML SYRINGE 1ML IV PRN ×2 (10:08→23:12)
--- NOTE | 2020-02-04 11:38 | NUR ---
Doctor at bedside Dr. Jesus at beside updating patient and this RN on POC. Advised patient to lay in prone position. No new orders received, will continue to monitor.
[2020-02-04 13:00] VITALS: BP 98/60
[2020-02-04 17:00] VITALS: BP 101/61
[2020-02-04] MEDS: ALBUTEROL SULF HFA 90MCG INH 200DOSE IN PRN ×2 (17:20→22:39)
[2020-02-04] MEDS: TAMSULOSIN HYDROCHLORIDE 0.4 MG CAP PO SCH (17:20)
--- NOTE | 2020-02-04 19:10 | NUR ---
Closing note Endorsed care to Javier RN. Patient has no signs of distress at this time.
[2020-02-04 22:00] VITALS: BP 91/60
[2020-02-05 05:00] VITALS: BP 97/67
[2020-02-05] MEDS: InsuLIN REG 1unit/0.01ml Soln (100units/ml) SC SCH ×4 (06:03→22:35)
[2020-02-05] MEDS: PIPERACILLIN-TAZOB 3.375GM 100 ML IV SCH ×2 (06:03→12:11)
[2020-02-05] MEDS: ACCU-CHEK COMFORT CURVE STRIP VI SCH ×4 (06:03→22:00)
--- NOTE | 2020-02-05 07:20 | NUR ---
Opening Shift Note Assumed care of patient, awake and alert x4. Patient on 15L non-rebreather mask. Bed is in lowest position and locked, call light within reach. Instructed on POC and to call for assist PRN, will continue to monitor for changes Q1hr and PRN.
[2020-02-05] MEDS: ALBUTEROL SULF HFA 90MCG INH 200DOSE IN PRN ×2 (07:33→20:07)
[2020-02-05] MEDS: BUDESONIDE (INHALATION) 180 MCG IH IN SCH ×2 (07:36→20:07)
[2020-02-05 09:00] VITALS: BP 102/55
[2020-02-05 10:13] LABS: Basophils # (auto) 0.1 10 ^3/uL (0-0.2); Eosinophils % (auto) 0.3 % (0.0-7.0); Monocytes # (auto) 0.9 10 ^3/uL (0-1.3); Nucleated Red Blood Cells % 0.1 %
[2020-02-05 10:17] LABS: Basophils % (auto) 0.4 % (0.0-2.0); Eosinophils # (auto) 0.1 10 ^3/uL (0-0.8); Hematocrit 48.2 % (41.0-53.0); Hemoglobin 16.7 g/dL (13.5-17.5); Mean Corpuscular Hemoglobin 31.5 pg (28.0-32.0); Mean Corpuscular Hgb Conc. 34.6 g/dL (32.0-36.0); Mean Corpuscular Volume 91.1 fL (80.0-100.0); Monocytes % (auto) 5.2 % (0.0-12.0); Neutrophils # (auto) 14.9 10 ^3/uL (1.6-8.6); Neutrophils % (auto) 88.1 % (37.0-80.0); Red Blood Cells 5.29 10^6/uL (4.5-5.90); Red Cell Distribution Width 13.1 % (11.8-14.3)
[2020-02-05] MEDS: DexAMETHasone SOD PHOS 10MG/1ML VIAL INJ IV SCH (10:29)
[2020-02-05] MEDS: Ensure HIGH Protein Vanilla 8oz Bottle PO SCH ×3 (10:29→20:14)
[2020-02-05] MEDS: FUROSEMIDE 40 MG/4 ML VIAL IV SCH (10:30)
[2020-02-05] MEDS: THIAMINE HCL 100 MG TAB PO SCH (10:30)
[2020-02-05] MEDS: ZINC SULFATE 220mg CAP or TAB PO SCH (10:30)
[2020-02-05] MEDS: CHOLECALCIFEROL (VITD3) 2,000 UNIT CAP PO SCH (10:31)
[2020-02-05] MEDS: ENOXAPARIN SOD 100 MG/1 ML SYRINGE SC SCH ×2 (10:31→22:36)
[2020-02-05] MEDS: POTASSIUM CHL 10 Meq TABLET PO SCH (10:31)
[2020-02-05] MEDS: FAMOTIDINE 20 MG TAB PO SCH (10:32)
[2020-02-05] MEDS: ASCORBIC ACID 1,000 MG TAB PO SCH (10:32)
[2020-02-05 10:33] LABS: BUN/Creatinine Ratio 20.9; Calcium 9.1 mg/dL (8.5-10.1); Potassium 3.9 mmol/L (3.5-5.1)
[2020-02-05 10:35] LABS: Platelet Count (auto) 667 10^3/uL (140-450)
--- NOTE | 2020-02-05 11:50 | NUR ---
Doctor at bedside Dr. Jesus updating plan of care to patient and this RN. New orders received, will carry out and continue to monitor.
[2020-02-05 13:00] VITALS: BP 94/61
[2020-02-05] MEDS ORDERED: MEROPENEM 1GM IVPB 100 ML IV ONE (13:45)
[2020-02-05] MEDS: TAMSULOSIN HYDROCHLORIDE 0.4 MG CAP PO SCH (16:51)
[2020-02-05 17:00] VITALS: BP 104/73
--- NOTE | 2020-02-05 19:26 | NUR ---
CLOSING NOTE ENDORSED CARE TO NIGHT RN. PATIENT SHOWS NO SIGNS OF DISTRESS AT THIS MOMENT.
--- NOTE | 2020-02-05 20:00 | NUR ---
PT only consumed 25% of meal and 0% of supplement.
[2020-02-05 22:00] VITALS: BP 101/62
[2020-02-05] MEDS: MEROPENEM 1GM IVPB 100 ML IV SCH (22:36)
[2020-02-05] MEDS: LINEZOLID 600MG/300ML 300 ML IV SCH (22:36)
[2020-02-06 05:00] VITALS: BP 92/54
[2020-02-06] MEDS: MEROPENEM 1GM IVPB 100 ML IV SCH ×2 (05:30→17:05)
[2020-02-06] MEDS: InsuLIN REG 1unit/0.01ml Soln (100units/ml) SC SCH ×4 (06:03→23:03)
[2020-02-06] MEDS: ACCU-CHEK COMFORT CURVE STRIP VI SCH ×4 (06:06→23:04)
--- NOTE | 2020-02-06 06:39 | NUR ---
Patient self turn throughout the night. O2 saturation falls to low 80%'s while turning and having NB mask 100% on. Patient understands purpose of turning and proning. New non-rebreather mask placed
[2020-02-06 07:21] LABS: Basophils # (auto) 0 10 ^3/uL (0-0.2); Eosinophils # (auto) 0 10 ^3/uL (0-0.8); Nucleated Red Blood Cells % 0.1 %
[2020-02-06 07:24] LABS: Basophils % (auto) 0.2 % (0.0-2.0); Hematocrit 46.4 % (41.0-53.0); Lymphocytes # (auto) 0.8 10 ^3/uL (0.4-5.4); Lymphocytes % (auto) 3.2 % (10.0-50.0); Mean Corpuscular Hemoglobin 31.1 pg (28.0-32.0); Mean Corpuscular Hgb Conc. 34.4 g/dL (32.0-36.0); Mean Corpuscular Volume 90.4 fL (80.0-100.0); Monocytes # (auto) 0.9 10 ^3/uL (0-1.3); Monocytes % (auto) 3.9 % (0.0-12.0); Neutrophils # (auto) 22.1 10 ^3/uL (1.6-8.6); Neutrophils % (auto) 92.7 % (37.0-80.0); Platelet Count (auto) 636 10^3/uL (140-450); Red Blood Cells 5.13 10^6/uL (4.5-5.90); Red Cell Distribution Width 13.1 % (11.8-14.3); White Blood Cell 23.9 10^3/uL (4.4-10.8)
[2020-02-06 07:38] LABS: Potassium 3.3 mmol/L (3.5-5.1)
--- NOTE | 2020-02-06 07:40 | NUR ---
OPENING NOTE Assumed care of patient from NOC RN. Patient is AOx4, no s/s of distress noted, patient on 15 L NRB. Bed is in lowest locked position, call light within reach and side rails up x2. Updated patient on plan of care and patient verbalized understanding. Will continue to monitor.
[2020-02-06 07:50] LABS: BUN/Creatinine Ratio 21.4; Calcium 8.5 mg/dL (8.5-10.1)
[2020-02-06] MEDS: Ensure HIGH Protein Vanilla 8oz Bottle PO SCH ×3 (08:00→17:43)
[2020-02-06 09:00] VITALS: BP 97/67
[2020-02-06] MEDS: THIAMINE HCL 100 MG TAB PO SCH (09:35)
[2020-02-06] MEDS: DexAMETHasone SOD PHOS 10MG/1ML VIAL INJ IV SCH (09:35)
[2020-02-06] MEDS: POTASSIUM CHL 10 Meq TABLET PO SCH (09:36)
[2020-02-06] MEDS: FAMOTIDINE 20 MG TAB PO SCH (09:36)
[2020-02-06] MEDS: ASCORBIC ACID 1,000 MG TAB PO SCH (09:36)
[2020-02-06] MEDS: CHOLECALCIFEROL (VITD3) 2,000 UNIT CAP PO SCH (09:37)
[2020-02-06] MEDS: ZINC SULFATE 220mg CAP or TAB PO SCH (09:38)
[2020-02-06] MEDS: ENOXAPARIN SOD 100 MG/1 ML SYRINGE SC SCH ×2 (09:38→23:04)
[2020-02-06] MEDS: FUROSEMIDE 40 MG/4 ML VIAL IV SCH (09:58)
--- NOTE | 2020-02-06 09:59 | NUR ---
spoke with pharmacy spoke with Radha with pharmacy regarding zyvox. Medication is currently out and will not be in until 1130 today.
[2020-02-06] MEDS: BUDESONIDE (INHALATION) 180 MCG IH IN SCH ×2 (10:00→22:00)
[2020-02-06] MEDS: LINEZOLID 600MG/300ML 300 ML IV SCH ×2 (10:00→23:03)
--- NOTE | 2020-02-06 11:30 | NUR ---
Patient refusing to eat patient stated "I just dont feel hungry, i didnt eat breakfast either. I dont want lunch." Will hold on insulin at this time, due to lack of appetite and eating/ drinking. MD aware of lack of appetite.
--- NOTE | 2020-02-06 11:36 | NUR ---
Physician rounding Dr. Jesus at bedside. MD updated patient on plan of care, new orders received,will follow through.
--- NOTE | 2020-02-06 11:45 | NUR ---
physician rounding Dr. Butler at bedside. Updated MD on patient status, new order received,will follow through. Will continue care.
[2020-02-06 12:00] VITALS: BP 89/41
--- NOTE | 2020-02-06 13:15 | NUR ---
NORMAL SALINE 500ML at 60ml/hr was started.
--- NOTE | 2020-02-06 13:35 | NUR ---
B/P reassessment B/P is 101/63, 10bpm, and 93%. No s/s of distress noted.
[2020-02-06] MEDS ORDERED: SODIUM CHLORIDE 0.9% 500 ML IV ONE (16:15)
[2020-02-06 17:00] VITALS: BP 105/70
[2020-02-06] MEDS: TAMSULOSIN HYDROCHLORIDE 0.4 MG CAP PO SCH ×3 (17:07→17:44)
[2020-02-06] MEDS ORDERED: POTASSIUM CHL 20 Meq TABLET PO ONE (17:15)
--- NOTE | 2020-02-06 19:15 | NUR ---
END OF SHIFT NOTE ENDORSED CARE TO NOC RN MYKEL, NO S/S OF DISTRESS NOTED.
--- NOTE | 2020-02-06 19:38 | NUR ---
RECEIVED PATIENT FROM DAY SHIFT RN. PATIENT RESTING IN BED. NO S/S OF DISTRESS NOTED. DENIED PAIN FOR NOW. PATIENT IS ON 15L/NONREBREATHER, WITH O2 SAT 87%. PATIENT DENIED ANY SOB OR TROUBLE BREATHING. POC INSTRUCTED AND ENCOURAGED PATIENT TO CALL FOR FINISHER DENTURE IF NEEDED. BED IN LOWEST LOCKED POSITION WITH SIDE RAILS UP X 2. CALL ARRIAGA WITHIN REACH. ALARM ON. CONTINUE TO MONITOR FOR CHANGES Q1H AND PRN.
[2020-02-06 22:00] VITALS: BP 122/68
--- NOTE | 2020-02-06 23:05 | NUR ---
PATIENT'S O2 SAT DOWN TO 70S, RT PAGED, CAME AND CHECK PATIENT, PATIENT WAS ASKED TO BE ON PRONE POSITION, O2 SAT DOWN TO 50S, RT PUT PATIENT ON BIPAP NOW WITH O2 SAT 85 - 90%. CONTINUE TO MONITOR.
[2020-02-06] MEDS: ALBUTEROL SULF HFA 90MCG INH 200DOSE IN PRN (23:31)
[2020-02-07] MEDS: MEROPENEM 1GM IVPB 100 ML IV SCH ×3 (01:18→19:18)
--- NOTE | 2020-02-07 01:35 | NUR ---
PATIENT IS ON BIPAP WITH O2 SAT 90-91%. CONTINUE TO MONITOR.
[2020-02-07 05:00] VITALS: BP 111/74
[2020-02-07] MEDS: ACCU-CHEK COMFORT CURVE STRIP VI SCH ×4 (06:28→21:25)
[2020-02-07] MEDS: InsuLIN REG 1unit/0.01ml Soln (100units/ml) SC SCH ×4 (06:28→21:50)
--- NOTE | 2020-02-07 07:45 | NUR ---
Opening note Assumed care of patient from NOC RN. Patient is AOx4 no s/s of distress noted, noted to be on Bipap. Bed is in lowest locked position, call light within reach and side rails up x2. Updated patient on plan of care and patient verbalized understanding. Will continue to monitor q1hr and PRN.
[2020-02-07] MEDS: Ensure HIGH Protein Vanilla 8oz Bottle PO SCH ×3 (08:00→18:00)
[2020-02-07 09:00] VITALS: BP 108/73
[2020-02-07] MEDS: FUROSEMIDE 40 MG/4 ML VIAL IV SCH (10:00)
[2020-02-07] MEDS: CHOLECALCIFEROL (VITD3) 2,000 UNIT CAP PO SCH (10:00)
[2020-02-07] MEDS: POTASSIUM CHL 10 Meq TABLET PO SCH (10:00)
[2020-02-07] MEDS: ASCORBIC ACID 1,000 MG TAB PO SCH (10:00)
[2020-02-07] MEDS: ZINC SULFATE 220mg CAP or TAB PO SCH (10:00)
[2020-02-07] MEDS: FAMOTIDINE 20 MG TAB PO SCH (10:00)
[2020-02-07] MEDS: BUDESONIDE (INHALATION) 180 MCG IH IN SCH ×2 (10:00→20:48)
[2020-02-07] MEDS: THIAMINE HCL 100 MG TAB PO SCH (10:00)
[2020-02-07] MEDS: LINEZOLID 600MG/300ML 300 ML IV SCH ×2 (10:00→23:30)
[2020-02-07 10:05] LABS: Eosinophils # (auto) 0 10 ^3/uL (0-0.8); Red Cell Distribution Width 13.3 % (11.8-14.3)
[2020-02-07 10:08] LABS: Basophils # (auto) 0 10 ^3/uL (0-0.2); Basophils % (auto) 0.1 % (0.0-2.0); Hematocrit 44.2 % (41.0-53.0); Hemoglobin 14.8 g/dL (13.5-17.5); Lymphocytes # (auto) 0.7 10 ^3/uL (0.4-5.4); Lymphocytes % (auto) 2.9 % (10.0-50.0); Mean Corpuscular Hemoglobin 30.7 pg (28.0-32.0); Mean Corpuscular Hgb Conc. 33.6 g/dL (32.0-36.0); Mean Corpuscular Volume 91.3 fL (80.0-100.0); Monocytes # (auto) 0.9 10 ^3/uL (0-1.3); Monocytes % (auto) 3.8 % (0.0-12.0); Neutrophils # (auto) 22.6 10 ^3/uL (1.6-8.6); Neutrophils % (auto) 93.2 % (37.0-80.0); Platelet Count (auto) 593 10^3/uL (140-450); Red Blood Cells 4.84 10^6/uL (4.5-5.90); White Blood Cell 24.3 10^3/uL (4.4-10.8)
--- NOTE | 2020-02-07 10:32 | NUR ---
Zyvox Called pharmacy regarding Zyvox. [facility] pharmacy is currently out of the medication.
[2020-02-07 10:35] LABS: Albumin 1.7 g/dL (3.4-5.0); Calcium 8.4 mg/dL (8.5-10.1); Potassium 3.5 mmol/L (3.5-5.1)
[2020-02-07 10:40] LABS: BUN/Creatinine Ratio 26.9
[2020-02-07 10:42] LABS: INR 1.16 (0.9-1.15)
[2020-02-07] MEDS: ALBUTEROL SULF HFA 90MCG INH 200DOSE IN PRN (11:08)
--- NOTE | 2020-02-07 11:25 | NUR ---
Refusal Patient refusing PO medications. Patient stated " I am afraid to choke. I don't feel comfortable taking the mask off." Educated patient on the importance of taking his medications. Patient still verbalizing refusal. Will continue to monitor.
--- NOTE | 2020-02-07 11:34 | NUR ---
Nutrition Followup Notes Wt: 92.6 kg Pt is positive for COVID, in isolation. Pt is on a BIPAP with a Cardiac 2gNa diet along with ensure HP tid with poor PO of < 50% x 4 per RN doc Est energy needs 3386-2529 kcal (18-20 kcal/kg BW 99.2kg) Est protein needs 73-95g (1-1.3g/kg IBW 73kg). Will monitor and reassess prn. LABS: BUN 27 H, GLU 122 H, ALB 2.4 L GI: Pt had 1 BM today per RN doc BS: 15 mod risk. Refer to wound assessment report for further details PES: Obesity r/t caloric intake in excess of needs aeb pt with a BMI of 32.3kg/m2 Comments Will continue to monitor PO status, skin status, pertinent labs and weight trends. Will f/u in 3-5 days 1) Continue to monitor po intake, labs ,skin 2) Refer pt to OPD on DC 3) Continue current plan of care
--- NOTE | 2020-02-07 11:38 | NUR ---
Spoke with family Spoke with patients "best friend" Oneil. Per Oneil he would like a call from the MD for an update on the POC. Informed Oneil that MD will be notified and provided with his information. Oneil's phone number is [phone].
[2020-02-07] MEDS: DexAMETHasone SOD PHOS 10MG/1ML VIAL INJ IV SCH (11:42)
[2020-02-07] MEDS: ENOXAPARIN SOD 100 MG/1 ML SYRINGE SC SCH ×2 (11:43→21:25)
[2020-02-07 13:00] VITALS: BP 108/64
[2020-02-07 17:00] VITALS: BP 97/67
[2020-02-07] MEDS: TAMSULOSIN HYDROCHLORIDE 0.4 MG CAP PO SCH (18:00)
--- NOTE | 2020-02-07 18:18 | NUR ---
Medication held insulin was held due to patient refusing to eat.
[2020-02-07] MEDS ORDERED: diphenhdrAMINE HCL 50 MG/1 ML VL IV SCH (21:00)
[2020-02-07] MEDS ORDERED: methylPREDNISolone SOD SUCC 40 MG/ML VL IV SCH (21:00)
[2020-02-07] MEDS: ACETAMINOPHEN 650 mg PER 20.3 mL UD PO SCH ×2 (21:00→21:25)
--- NOTE | 2020-02-07 21:00 | NUR ---
call from pharmacy received call from pharmacy regarding patient's pre medication for actemra. Will follow through.
[2020-02-07] MEDS ORDERED: TOCILIZUMAB 400 MG in SODIUM CHL 0.9% 80 ML IV SCH (21:30)
--- NOTE | 2020-02-07 21:30 | NUR ---
called pharmacy informed pharmacy student that patient is not able to tolerate PO intake, and does not tolerate being off Bipap, patient begins to cough on water. Per Tracy Tylenol can be held.
[2020-02-07 22:00] VITALS: BP 110/74
--- NOTE | 2020-02-08 00:15 | NUR ---
End of shift Endorsed care to NOC RADAMES Bartlett. Informed RN that zyvox is currently running. No s/s of distress noted in patient.
--- NOTE | 2020-02-08 00:16 | NUR ---
Assumed care of patient, patient asleep. No S/S of distress/SOB or pain. Will continue to monitor for changes Q1hr and PRN.
[2020-02-08] MEDS: MEROPENEM 1GM IVPB 100 ML IV SCH ×3 (01:06→17:23)
[2020-02-08 05:00] VITALS: BP 106/76
[2020-02-08] MEDS: InsuLIN REG 1unit/0.01ml Soln (100units/ml) SC SCH ×4 (05:59→21:57)
[2020-02-08] MEDS: ACCU-CHEK COMFORT CURVE STRIP VI SCH ×4 (05:59→21:58)
--- NOTE | 2020-02-08 06:00 | NUR ---
Patient is still refusing to eat anything due to the bipap. Patient blood sugar in the am was 147. Insulin held. Will continue to monitor.
[2020-02-08] MEDS: ALBUTEROL SULF HFA 90MCG INH 200DOSE IN PRN (06:40)
[2020-02-08] MEDS: BUDESONIDE (INHALATION) 180 MCG IH IN SCH ×2 (06:40→21:45)
[2020-02-08 06:53] LABS: Basophils # (auto) 0 10 ^3/uL (0-0.2); Eosinophils # (auto) 0 10 ^3/uL (0-0.8); Lymphocytes # (auto) 0.6 10 ^3/uL (0.4-5.4); Monocytes # (auto) 0.5 10 ^3/uL (0-1.3); Red Blood Cells 4.66 10^6/uL (4.5-5.90)
[2020-02-08 06:56] LABS: Basophils % (auto) 0.1 % (0.0-2.0); Hematocrit 43.3 % (41.0-53.0); Hemoglobin 14.4 g/dL (13.5-17.5); Lymphocytes % (auto) 3.5 % (10.0-50.0); Mean Corpuscular Hemoglobin 30.9 pg (28.0-32.0); Mean Corpuscular Hgb Conc. 33.3 g/dL (32.0-36.0); Mean Corpuscular Volume 92.9 fL (80.0-100.0); Monocytes % (auto) 2.8 % (0.0-12.0); Neutrophils # (auto) 15.8 10 ^3/uL (1.6-8.6); Neutrophils % (auto) 93.6 % (37.0-80.0); Platelet Count (auto) 582 10^3/uL (140-450); Red Cell Distribution Width 13.4 % (11.8-14.3); White Blood Cell 16.9 10^3/uL (4.4-10.8)
--- NOTE | 2020-02-08 07:00 | NUR ---
Opening Shift Note Assumed care of patient, awake and alert. Patient on Bipap mask and saturating 89%. Right hand 22 G IV clean, dry, patent with no signs of redness or swelling. Bed in lowest position, side rails up x2, and call light within reach. Instructed on POC and to call for assist PRN, will continue to monitor for changes Q1hr and PRN.
[2020-02-08 07:05] LABS: Potassium 4.5 mmol/L (3.5-5.1)
[2020-02-08 07:23] LABS: Albumin 1.7 g/dL (3.4-5.0); BUN/Creatinine Ratio 30.4; Bilirubin, Total 0.7 mg/dL (0.2-1.0); Calcium 8.6 mg/dL (8.5-10.1); Total Protein 7.2 g/dL (6.4-8.2)
[2020-02-08] MEDS: Ensure HIGH Protein Vanilla 8oz Bottle PO SCH ×3 (08:00→17:23)
[2020-02-08 09:00] VITALS: BP 110/71
[2020-02-08] MEDS: FUROSEMIDE 40 MG/4 ML VIAL IV SCH (09:54)
[2020-02-08] MEDS: THIAMINE HCL 100 MG TAB PO SCH ×2 (09:54→10:00)
[2020-02-08] MEDS: ZINC SULFATE 220mg CAP or TAB PO SCH ×2 (09:55→10:00)
[2020-02-08] MEDS: POTASSIUM CHL 10 Meq TABLET PO SCH ×2 (09:56→10:00)
[2020-02-08] MEDS: FAMOTIDINE 20 MG TAB PO SCH ×2 (09:56→10:00)
[2020-02-08] MEDS: ASCORBIC ACID 1,000 MG TAB PO SCH ×2 (09:57→10:00)
[2020-02-08] MEDS: CHOLECALCIFEROL (VITD3) 2,000 UNIT CAP PO SCH ×2 (09:58→10:00)
[2020-02-08] MEDS: ENOXAPARIN SOD 100 MG/1 ML SYRINGE SC SCH ×2 (09:58→21:58)
--- NOTE | 2020-02-08 10:29 | NUR ---
MD PLEITEZ CALLED PRIMARY RN RE: UPDATE ON PATIENT STATUS. UPDATED AND NEW ORDERS RECEIVED.
--- NOTE | 2020-02-08 11:04 | NUR ---
MD CALLED RN TO UPDATE ON POC PER MD SHE HAS ALLOWED FOR AND TWO SONS TO VISIT. SUGAR REFINERY SUPERVISOR AND HOOF TRIMMER AWARE
--- NOTE | 2020-02-08 11:30 | NUR ---
DR. JANE AT BEDSIDE MD at bedside. Discussed POC with patient. New orders received. Will carry out per protocol.
--- NOTE | 2020-02-08 11:57 | NUR ---
PATIENT FAMILY AT BEDSIDE.
--- NOTE | 2020-02-08 12:43 | NUR ---
FAMILY ESCORTED OFF UNIT BY STAFF.
[2020-02-08 13:00] VITALS: BP 106/78
[2020-02-08] MEDS ORDERED: ACETAMINOPHEN 650 mg PER 20.3 mL UD PO ONE (14:45)
[2020-02-08] MEDS ORDERED: diphenhdrAMINE HCL 50 MG/1 ML VL IV ONE (14:45)
[2020-02-08] MEDS ORDERED: methylPREDNISolone SOD SUCC 40 MG/ML VL IV ONE (14:45)
[2020-02-08] MEDS ORDERED: TOCILIZUMAB 400 MG in SODIUM CHL 0.9% 80 ML IV ONE (15:00)
--- NOTE | 2020-02-08 15:00 | NUR ---
IV insertion IV access obtained, via clean sterile technique by inserting 22 gauge catheter at RIGHT AC after 1 attempt(s). IV secured properly. No trauma to site. Patient tolerated well.
[2020-02-08] MEDS: LINEZOLID 600MG/300ML 300 ML IV SCH (15:09)
[2020-02-08 17:00] VITALS: BP 95/60
[2020-02-08] MEDS: TAMSULOSIN HYDROCHLORIDE 0.4 MG CAP PO SCH (17:23)
--- NOTE | 2020-02-08 18:03 | NUR ---
PAGED ON-CALL HOSPITALIST RE: PATIENT STATING "I AM VERY SHORT OF BREATH" CURRENT RR IS 40 WITH SPO2 89% HEART RATE 98. AWAITING CALL BACK Addendum: 02/08/20 at 1805 by BRANDEN COLEMAN RN RN PATIENT STATES " I AM VERY SHORT OF BREATH" WHEN ASKED IF PATIENT IS FEELING ANXIOUS PATIENT STATES "YES, YES"
--- NOTE | 2020-02-08 18:10 | NUR ---
HOSPITALIST VALERIA RETURNED PAGE' NEW ORDERS RECEIVED. WILL IMPLEMENT PER PROTOCAL
[2020-02-08] MEDS: LORazepam 2MG/ML-1ML VIAL IV PRN (18:20)
--- NOTE | 2020-02-08 19:20 | NUR ---
Opening Shift Note Assumed care of patient, awake and alert. Patient on Bipap mask and saturating 92%. Right hand 22 G IV and Right AC 22G IV. Both clean, dry, patent with no signs of redness or swelling. Bed in lowest position, side rails up x2, and call light within reach. Instructed on POC and to call for assist PRN, will continue to monitor for changes Q1hr and PRN.
[2020-02-08 22:00] VITALS: BP 107/79
--- NOTE | 2020-02-08 22:00 | NUR ---
Patient no signs of distress. denies any needs right now.
[2020-02-09] MEDS: LINEZOLID 600MG/300ML 300 ML IV SCH ×3 (00:16→21:58)
[2020-02-09] MEDS: MEROPENEM 1GM IVPB 100 ML IV SCH ×3 (01:51→17:48)
[2020-02-09 05:00] VITALS: BP 121/85
[2020-02-09] MEDS: InsuLIN REG 1unit/0.01ml Soln (100units/ml) SC SCH ×5 (06:24→21:57)
[2020-02-09] MEDS: ACCU-CHEK COMFORT CURVE STRIP VI SCH ×4 (06:25→21:56)
[2020-02-09] MEDS: BUDESONIDE (INHALATION) 180 MCG IH IN SCH ×2 (06:52→19:49)
[2020-02-09] MEDS: Ensure HIGH Protein Vanilla 8oz Bottle PO SCH ×3 (08:00→17:47)
--- NOTE | 2020-02-09 08:00 | NUR ---
PATIENT FOUND SITTING IN OLD URINE. PATIENT CLEANED AND LINEN CHANGED. PATIENT DESATURATED DOWN TO 71% WITH RR AT 40BPM. PATIENT SAT UP. PILLOWS PLACED UNDER ARM AND ENCOURAGED TO DEEP BREATH. PATIENT OXYGEN SATURATIONS AT 84-87% RR AT 30BPM. PATIENT TOLERATING OK.
[2020-02-09] MEDS: THIAMINE HCL 100 MG TAB PO SCH (08:55)
[2020-02-09] MEDS: ZINC SULFATE 220mg CAP or TAB PO SCH (08:55)
[2020-02-09] MEDS: POTASSIUM CHL 20 Meq TABLET PO SCH (08:55)
[2020-02-09] MEDS: ENOXAPARIN SOD 100 MG/1 ML SYRINGE SC SCH ×2 (08:56→21:56)
[2020-02-09] MEDS: FAMOTIDINE 20 MG TAB PO SCH (08:56)
[2020-02-09] MEDS: ASCORBIC ACID 1,000 MG TAB PO SCH (08:56)
[2020-02-09] MEDS: CHOLECALCIFEROL (VITD3) 2,000 UNIT CAP PO SCH (08:56)
[2020-02-09 09:00] VITALS: BP 103/76
[2020-02-09] MEDS: FUROSEMIDE 40 MG/4 ML VIAL IV SCH (12:08)
--- NOTE | 2020-02-09 12:42 | NUR ---
Marty MARRERO. INFORMED OF PATIENT STATUS. INFORMED PATIENT IS NOT ABLE TO BE TAKEN OFF BIPAP TO EAT. INFORMED OF PATIENTS DESATURATIONS THIS AM WHEN CLEANED. RECEIVED ORDER FOR VALLE CATHETER.
--- NOTE | 2020-02-09 12:47 | NUR ---
Marty JANE AT BEDSIDE. INFORMED OF PATIENTS STATUS AND DESATURATIONS. INSTRUCTED TO ORDER ABG. WILL FOLLOW THROUGH.
[2020-02-09 13:00] VITALS: BP 104/72
--- NOTE | 2020-02-09 14:02 | NUR ---
ATTEMPTED ABG MULTIPLE TIMES, WAS UNABLE TO COLLECT. WILL TRY LATER WITH ADDITIONAL RT WHEN AVAILABLE.
--- NOTE | 2020-02-09 14:59 | NUR ---
PATIENT TURNED TO RIGHT SIDE. PATIENT DESATURATED DOWN TO 72%. PATIENT READJUSTED. STILL LAYING ON RIGHT SIDE. OXYGEN SATURATIONS BACK AT 88%. RR AT 25BPM.
--- NOTE | 2020-02-09 15:12 | NUR ---
INFORMED Marty JANE OF ABG RESULTS. INSTRUCTED TO CHANGE IPAP AND EPAP SETTINGS. CALLED RT AND SPOKE TO RT JET. INFORMED OF CHANGES. STATED SHE WOULD COME BY AND CHANGE SETTINGS.
[2020-02-09 17:00] VITALS: BP 110/59
--- NOTE | 2020-02-09 17:09 | NUR ---
Wren catheter insertion Patient assessed and determined to be in need of wren catheter. Order obtained from MD. Patient educated on catheter and reason for insertion. All questions answered. Wren catheter 16 guage Divehi inserted with clean sterile technique. Patient tolerated well.
[2020-02-09] MEDS: TAMSULOSIN HYDROCHLORIDE 0.4 MG CAP PO SCH (17:34)
--- NOTE | 2020-02-09 19:05 | NUR ---
Opening Shift Note Assumed care of patient, awake and alert. Patient on Bipap mask and saturating 94%. patient on right side laying position. Right hand 22 G IV and Right AC 22G IV. Both clean, dry, patent with no signs of redness or swelling. Bed in lowest position, side rails up x2, and call light within reach. Instructed on POC and to call for assist PRN, will continue to monitor for changes Q1hr and PRN.
[2020-02-09] MEDS: ALBUTEROL SULF HFA 90MCG INH 200DOSE IN PRN (19:49)
[2020-02-09 22:00] VITALS: BP 111/72
[2020-02-10] MEDS: MEROPENEM 1GM IVPB 100 ML IV SCH ×3 (00:43→17:38)
[2020-02-10 05:00] VITALS: BP 149/77
[2020-02-10] MEDS: InsuLIN REG 1unit/0.01ml Soln (100units/ml) SC SCH ×4 (06:34→22:10)
[2020-02-10] MEDS: ACCU-CHEK COMFORT CURVE STRIP VI SCH ×4 (06:34→22:09)
[2020-02-10] MEDS: LORazepam 2MG/ML-1ML VIAL IV PRN ×2 (07:17→23:25)
[2020-02-10] MEDS: Ensure HIGH Protein Vanilla 8oz Bottle PO SCH ×3 (08:00→17:44)
[2020-02-10 09:00] VITALS: BP 106/67
[2020-02-10] MEDS: FUROSEMIDE 40 MG/4 ML VIAL IV SCH (09:30)
[2020-02-10] MEDS: LINEZOLID 600MG/300ML 300 ML IV SCH ×2 (09:31→22:09)
[2020-02-10] MEDS: ZINC SULFATE 220mg CAP or TAB PO SCH ×2 (09:31→10:00)
[2020-02-10] MEDS: THIAMINE HCL 100 MG TAB PO SCH ×2 (09:31→10:00)
[2020-02-10] MEDS: ENOXAPARIN SOD 100 MG/1 ML SYRINGE SC SCH ×2 (09:31→22:09)
[2020-02-10] MEDS: POTASSIUM CHL 20 Meq TABLET PO SCH ×2 (09:32→10:00)
[2020-02-10] MEDS: ASCORBIC ACID 1,000 MG TAB PO SCH ×2 (09:33→10:00)
[2020-02-10] MEDS: CHOLECALCIFEROL (VITD3) 2,000 UNIT CAP PO SCH ×2 (09:33→10:00)
[2020-02-10] MEDS: FAMOTIDINE 20 MG TAB PO SCH ×2 (09:33→10:00)
[2020-02-10] MEDS: BUDESONIDE (INHALATION) 180 MCG IH IN SCH ×2 (10:00→19:20)
--- NOTE | 2020-02-10 12:13 | NUR ---
Nutrition Followup Notes Wt: 92.6 kg Pt is positive for COVID, in isolation. Pt is on a BIPAP with a Cardiac 2gNa diet along with ensure HP tid with poor PO of < 50% x 3 per RN doc Est energy needs 4367-7511 kcal (18-20 kcal/kg BW 99.2kg) Est protein needs 73-95g (1-1.3g/kg IBW 73kg). Will monitor and reassess prn. LABS: GLU 136 H ALB 1.7 L GI: Pt had 1 BM 02/06 per RN doc BS: 17 mod risk. Refer to wound assessment report for further details PES: Obesity r/t caloric intake in excess of needs aeb pt with a BMI of 32.3kg/m2 Comments Will continue to monitor PO status, skin status, pertinent labs and weight trends. Will f/u in 3-5 days 1) Continue to monitor po intake, labs ,skin 2) Refer pt to OPD on DC 3) Continue current plan of care Addendum: 02/10/20 at [address] Rec: consider prostat 1 packet bid
[2020-02-10 13:00] VITALS: BP 112/75
[2020-02-10 16:52] VITALS: BP 97/65
[2020-02-10] MEDS ORDERED: DexAMETHasone SOD PHOS 10MG/1ML VIAL INJ IV ONE (17:15)
[2020-02-10] MEDS: TAMSULOSIN HYDROCHLORIDE 0.4 MG CAP PO SCH (17:44)
--- NOTE | 2020-02-10 18:00 | NUR ---
PT ON BIPAP- 18/10 AT 100% TOLERATING THERAPY WELL O2SAT: 93% CALL LIGHT WITHIN REACH.
--- NOTE | 2020-02-10 19:30 | NUR ---
Opening Shift Note Assumed care of patient, awake and alert. No S/S of distress/SOB or pain. Instructed on POC and to call for assist PRN, will continue to monitor for changes Q1hr and PRN.
[2020-02-10 20:00] VITALS: BP 106/77
[2020-02-11] MEDS: ALBUTEROL SULF HFA 90MCG INH 200DOSE IN PRN ×2 (00:41→20:09)
[2020-02-11] MEDS: MEROPENEM 1GM IVPB 100 ML IV SCH ×3 (01:39→18:28)
[2020-02-11] MEDS: ACCU-CHEK COMFORT CURVE STRIP VI SCH ×3 (06:35→17:49)
[2020-02-11] MEDS: InsuLIN REG 1unit/0.01ml Soln (100units/ml) SC SCH ×3 (06:36→17:51)
[2020-02-11] MEDS: BUDESONIDE (INHALATION) 180 MCG IH IN SCH ×2 (06:59→20:05)
[2020-02-11 07:26] LABS: Basophils # (auto) 0 10 ^3/uL (0-0.2); Eosinophils # (auto) 0 10 ^3/uL (0-0.8); Eosinophils % (auto) 0.2 % (0.0-7.0)
[2020-02-11 07:27] LABS: Basophils % (auto) 0.4 % (0.0-2.0); Lymphocytes # (auto) 0.9 10 ^3/uL (0.4-5.4); Lymphocytes % (auto) 7.9 % (10.0-50.0); Mean Corpuscular Hemoglobin 30.7 pg (28.0-32.0); Mean Corpuscular Hgb Conc. 32.7 g/dL (32.0-36.0); Monocytes # (auto) 0.5 10 ^3/uL (0-1.3); Monocytes % (auto) 4.8 % (0.0-12.0); Neutrophils # (auto) 9.7 10 ^3/uL (1.6-8.6); Neutrophils % (auto) 86.7 % (37.0-80.0); Nucleated Red Blood Cells % 0.1 %; Platelet Count (auto) 542 10^3/uL (140-450); Red Blood Cells 5.21 10^6/uL (4.5-5.90); Red Cell Distribution Width 13.4 % (11.8-14.3); White Blood Cell 11.2 10^3/uL (4.4-10.8)
[2020-02-11 07:38] LABS: Lactic Acid w/Reflex 2.7 mmol/L (0.4-2.0)
[2020-02-11 07:41] LABS: Magnesium 3.6 mg/dL (1.6-2.6); Potassium 4.4 mmol/L (3.5-5.1)
[2020-02-11 07:55] LABS: Albumin 2.1 g/dL (3.4-5.0); BUN/Creatinine Ratio 39.5; Bilirubin, Total 0.6 mg/dL (0.2-1.0); CRP High Sensitivity 1.77 mg/dL (< 0.3); Calcium 8.4 mg/dL (8.5-10.1); Total Protein 6.8 g/dL (6.4-8.2)
[2020-02-11 08:00] VITALS: BP 115/76
[2020-02-11] MEDS: Ensure HIGH Protein Vanilla 8oz Bottle PO SCH ×3 (08:00→13:00)
[2020-02-11 09:00] VITALS: BP 115/76
[2020-02-11] MEDS: LORazepam 2MG/ML-1ML VIAL IV PRN ×2 (09:02→18:30)
[2020-02-11] MEDS: FUROSEMIDE 40 MG/4 ML VIAL IV SCH ×2 (09:51→18:29)
[2020-02-11] MEDS: ZINC SULFATE 220mg CAP or TAB PO SCH (09:52)
[2020-02-11] MEDS: POTASSIUM CHL 20 Meq TABLET PO SCH (09:52)
[2020-02-11] MEDS: THIAMINE HCL 100 MG TAB PO SCH (09:52)
[2020-02-11] MEDS: LINEZOLID 600MG/300ML 300 ML IV SCH ×2 (09:52→21:57)
[2020-02-11] MEDS: FAMOTIDINE 20 MG TAB PO SCH (09:53)
[2020-02-11] MEDS: ASCORBIC ACID 1,000 MG TAB PO SCH (09:53)
[2020-02-11] MEDS: CHOLECALCIFEROL (VITD3) 2,000 UNIT CAP PO SCH (09:54)
[2020-02-11] MEDS: ENOXAPARIN SOD 100 MG/1 ML SYRINGE SC SCH ×2 (09:54→21:57)
[2020-02-11] MEDS ORDERED: DexAMETHasone SOD PHOS 10MG/1ML VIAL INJ IV SCH (10:00)
--- NOTE | 2020-02-11 10:45 | NUR ---
Dr Butler bedside with patient discussing plan of care. Orders received and carried out for PICC line placement and TPN.
[2020-02-11] MEDS ORDERED: TPN PER PHARMACY 0 ML IV SCH (11:00)
--- NOTE | 2020-02-11 11:00 | NUR ---
Notified House Sup of PICC line consult
[2020-02-11] MEDS ORDERED: DEXTROSE (50%) 50ML SYRG IV PRN ×2 (13:30)
[2020-02-11 13:58] LABS: INR 1.32 (0.9-1.15)
--- NOTE | 2020-02-11 15:42 | NUR ---
PICC line placement Patient educated on need for PICC line placement. All risks and benefits explained and all questions and concerns addressed prior to procedure. Noted past medical history and allergies with no contraindications. INR and Plt counts within acceptable range. 5fr PICC line inserted via RIGHT BASILIC vein using [employer]'s [employer] US and Tip Location System. Sterile technique with maximum barrier precautions utilized. Blood return obtained from each of 2 lumens and each flushed easily with NS using proper technique. PICC secured with Stat-lock; biodisc and occlusive dressing applied. Stat portable chest x-ray obtained for PICC tip placement. *Baseline Arm Circumference 30CM. PICC lot #[id number]. INTERNAL LENGTH 45CM EXTERNAL LENGTH 0CM
[2020-02-11] MEDS ORDERED: LIDOCAINE 1% (LOCAL ANESTH.) PF 5ml SDV ID ONE (15:45)
[2020-02-11 17:00] VITALS: BP 126/73
[2020-02-11] MEDS: TAMSULOSIN HYDROCHLORIDE 0.4 MG CAP PO SCH (17:13)
[2020-02-11] MEDS ORDERED: ACCU-CHEK COMFORT CURVE STRIP VI SCH ×2 (18:00)
[2020-02-11] MEDS ORDERED: InsuLIN REG 1unit/0.01ml Soln (100units/ml) SC SCH ×2 (18:00)
[2020-02-11] MEDS ORDERED: DEXTROSE (50%) 50ML SYRG IV SCH (18:00)
[2020-02-11 20:00] VITALS: BP 121/79
[2020-02-11] MEDS ORDERED: CLINIMIX PER PHARMACY IV NR (20:00)
[2020-02-11] MEDS: SODIUM CHLOR 0.9% PF (SALINE LOCK) 10ML VIAL/SYR IV SCH (21:57)
[2020-02-11] MEDS: DexAMETHasone SOD PHOS 10MG/1ML VIAL INJ IV SCH (21:57)
[2020-02-11 23:32] VITALS: BP 121/79
[2020-02-12] VITALS (52 sets, daily range): BP systolic 55–137; BP diastolic 49–105
[2020-02-12] MEDS: ACCU-CHEK COMFORT CURVE STRIP VI SCH ×5 (00:28→23:47)
[2020-02-12] MEDS: InsuLIN REG 1unit/0.01ml Soln (100units/ml) SC SCH ×5 (00:34→23:46)
[2020-02-12] MEDS: MEROPENEM 1GM IVPB 100 ML IV SCH ×3 (00:35→17:06)
[2020-02-12] MEDS: LORazepam 2MG/ML-1ML VIAL IV PRN (02:20)
--- NOTE | 2020-02-12 05:30 | NUR ---
PATIENT HAVING AN INCREASING FREQUENCY OF PVC. NOW HAVING MULTIPLE INSTANCES OF V-TACH. HOSPITALIST PAGED. AWAITING A CALL BACK.
--- NOTE | 2020-02-12 05:45 | NUR ---
HOSPITALIST RETURNED PAGED. CARDIOLOGY CONSULT ORDER OBTAINED. PATIENT'S OXYGEN SATURATION NOT STAYING ABOVE 80 PERCENT. PAGED FOR RESPIRATORY THERAPY.
[2020-02-12] MEDS: FUROSEMIDE 40 MG/4 ML VIAL IV SCH ×2 (05:56→17:49)
--- NOTE | 2020-02-12 06:10 | NUR ---
RESPIRATORY THERAPY AT BEDSIDE. RECOMMENDS INTUBATION. WILL NOTIFY CHARGE NURSE DEE OF CHANGE IN EVENTS.
[2020-02-12] MEDS ORDERED: PROPOFOL 100 ML IV ONE ×2 (06:21→06:23)
[2020-02-12] MEDS ORDERED: SUCCINYLCHOLINE CHLORIDE 20 MG/ML 10ML VIAL IV ONE (06:22)
[2020-02-12] MEDS ORDERED: MIDAZOLAM DRIP 50 mg/50mL 100 ML IV ONE (06:26)
[2020-02-12] MEDS ORDERED: NOREPINEPHRINE 8 MG/250ML KIT 250 ML IV ONE (06:28)
--- NOTE | 2020-02-12 06:55 | NUR ---
RECEIVED REPORT FROM JANIS RODRIGUEZ RN AWAITING FOR PATIENTS ARRIVAL ON THE UNIT
--- NOTE | 2020-02-12 07:10 | NUR ---
RECEIVED PATIENT PATIENT IS SEDATED AND INTUBATED, HEMODYNAMIC MONITOR, ACLS BOX AT THE BEDSIDE, VENTILATED BY AMBUBAG WITH SUPPLEMENTAL OXYGEN. PATIENT IS ON LEVO, PROPOFOL AND VERSED PATIENT BROUGHT BY WATER AND FIRE TECHNICIAN (ROBIN INTERIANO), TWO RTs, and RADAMES Michael. DAY SHIFT RADAMES CRAWFORD AT BEDSIDE RESUMING THE CARE.
--- NOTE | 2020-02-12 07:15 | NUR ---
INITIAL ASSESSMENT; Patient transferred to room 105-A, patient connected to [employer] monitor at bedside. Patient received with bleeding wound to nose, skin care provided, wound appears to be open DTI from Bipap mask. Patient oral cavity bloody, extensive oral care provided, suctioned large clots from oral pharynx moisturizing cream applied. OGT inserted after several attempts. Patient received on Diprivan 50 mcg's, Versed 15 mg's, levo 2 mcg's. Cummings to gravity. Patient incontinent of stool, partial linen change and skin care provided.
[2020-02-12] MEDS: Ensure HIGH Protein Vanilla 8oz Bottle PO SCH ×3 (08:00→17:54)
[2020-02-12] MEDS: PROPOFOL 100 ML IV SCH ×2 (08:00→10:00)
[2020-02-12] MEDS: fentaNYL Drip 2500mCg/250mlNS 250 ML IV SCH (08:00)
[2020-02-12] MEDS: NOREPINEPHRINE 8 MG/250ML KIT 250 ML IV SCH ×2 (08:00→22:34)
[2020-02-12 08:24] LABS: Basophils # (auto) 0 10 ^3/uL (0-0.2); Lymphocytes # (auto) 0.6 10 ^3/uL (0.4-5.4)
[2020-02-12] MEDS: MIDAZOLAM DRIP 50 mg/50mL 50 ML IV SCH ×2 (08:24→20:14)
[2020-02-12 08:27] LABS: Basophils % (auto) 0.2 % (0.0-2.0); Eosinophils # (auto) 0.4 10 ^3/uL (0-0.8); Eosinophils % (auto) 1.5 % (0.0-7.0); Hematocrit 50.9 % (41.0-53.0); Hemoglobin 16.8 g/dL (13.5-17.5); Lymphocytes % (auto) 2.5 % (10.0-50.0); Mean Corpuscular Hemoglobin 30.8 pg (28.0-32.0); Mean Corpuscular Volume 93.1 fL (80.0-100.0); Monocytes # (auto) 0.9 10 ^3/uL (0-1.3); Monocytes % (auto) 3.9 % (0.0-12.0); Neutrophils # (auto) 21.8 10 ^3/uL (1.6-8.6); Neutrophils % (auto) 91.9 % (37.0-80.0); Nucleated Red Blood Cells % 0.2 %; Platelet Count (auto) 612 10^3/uL (140-450); Red Blood Cells 5.46 10^6/uL (4.5-5.90); Red Cell Distribution Width 13.4 % (11.8-14.3); White Blood Cell 23.7 10^3/uL (4.4-10.8)
[2020-02-12 08:49] LABS: Albumin 2.4 g/dL (3.4-5.0); Calcium 8.3 mg/dL (8.5-10.1); Lactic Acid w/Reflex 4.7 mmol/L (0.4-2.0); Magnesium 3.6 mg/dL (1.6-2.6); Potassium 4.9 mmol/L (3.5-5.1)
[2020-02-12 08:52] LABS: BUN/Creatinine Ratio 31.8; Bilirubin, Total 0.6 mg/dL (0.2-1.0); Phosphorus 5.8 mg/dL (2.5-4.90); Total Protein 7.5 g/dL (6.4-8.2)
--- NOTE | 2020-02-12 09:45 | NUR ---
WOUND CARE PHOTOS; Photos taken of wound to nose.
[2020-02-12] MEDS: BUDESONIDE (INHALATION) 180 MCG IH IN SCH (09:53)
[2020-02-12] MEDS: LINEZOLID 600MG/300ML 300 ML IV SCH ×2 (10:00→22:21)
[2020-02-12] MEDS: ENOXAPARIN SOD 100 MG/1 ML SYRINGE SC SCH ×2 (10:00→22:00)
[2020-02-12] MEDS: POTASSIUM CHL 20 Meq TABLET PO SCH (10:00)
--- NOTE | 2020-02-12 10:00 | NUR ---
WOUND CARE NOTE: PATIENT RECENTLY INTUBATED, SEDATED, TRANSFERRED TO ICU, BED 8A. PATIENT NOTED TO HAVE A DTI, WITH FRICTION ABRASIONS NOTED TO NOSE. PATIENT HAD BEEN RECEIVING OXYGEN BY WAY OF BIPAP MASK. WOUND IS DEVICE ASSOCIATED. LEFT OPEN TO AIR. WOUND WAS PHOTOGRAPHED UPON PRESENTATION TO THE ICU BY ACCEPTING BEDSIDE NURSE FOR REFERENCE. PATIENT IS INTUBATED, SEDATED. CURRENT KVNG SCORE 13. PATIENT IN AIRBORNE ISOLATION, COVID POSITIVE. SKIN/WOUND CARE PLAN IMPLEMENTED. RECOMMEND:FREQUENT TURN SCHEDULE Q 2 HOURS, PRN CONDITION PERMITS, WITH PRESSURE REDISTRIBUTION USING PILLOWS/WEDGES, BID/PRN APPLICATION MOISTURE BARRIER CREAM, OPTIFOAM GENTLE SACRAL DRESSING PREVENTATIVE; DIETARY CONSULT FOR INTUBATION STATUS, LEAVE NOSE WOUND OPEN TO AIR, CONTINUED MONITORING BY WOUND CARE TEAM. Addendum: 02/12/20 at 1550 by Daniella Rodriguez RN Amended: Links added.
--- NOTE | 2020-02-12 10:38 | NUR ---
Nutrition Consult/Followup Notes Wt: 87.6 kg Pt is positive for COVID, in isolation now intubated sedated. pt is currently NPO and was initiated on PN support from last night @ 42 ml/hr providing 340 kcals and 42.5 gm proteins Est energy needs 7438-5490 kcal (18-20 kcal/kg BW 99.2kg) Est protein needs 73-95g (1-1.3g/kg IBW 73kg). Will monitor and reassess prn. LABS: TG 424 H rest lab wnl for today GI: Pt had 1 BM 02/06 per RN doc BS: 15 mod risk. Refer to wound assessment report for further details PES: Obesity r/t caloric intake in excess of needs aeb pt with a BMI of 32.3kg/m2 Comments Will continue to monitor NPO status, skin status, pertinent labs and weight trends, PN tolerance. Will f/u in 2-3 days 1) advance PN support to meet > 755 of needs. 2) advance diet as medically feasible. 3) Refer pt to OPD on DC. 4) Continue current plan of care
[2020-02-12] MEDS: THIAMINE HCL 100 MG TAB PO SCH (11:45)
[2020-02-12] MEDS: DexAMETHasone SOD PHOS 10MG/1ML VIAL INJ IV SCH ×2 (11:45→22:20)
[2020-02-12] MEDS: ZINC SULFATE 220mg CAP or TAB PO SCH (11:45)
[2020-02-12] MEDS: ASCORBIC ACID 1,000 MG TAB PO SCH (11:45)
[2020-02-12] MEDS: FAMOTIDINE 20 MG TAB PO SCH (11:45)
[2020-02-12] MEDS: CHOLECALCIFEROL (VITD3) 2,000 UNIT CAP PO SCH (11:45)
[2020-02-12] MEDS: SODIUM CHLOR 0.9% PF (SALINE LOCK) 10ML VIAL/SYR IV SCH ×2 (11:45→22:20)
--- NOTE | 2020-02-12 14:35 | NUR ---
FAMILY PHONE CALL: Spoke with patient's Doc, states that she was not notified of patient's change in condition. Informed her of occurrences prior to arrival on shift. Informed her at this time that patient is stable and maintaining oxygen saturation. Discussed with her that while patient remains in ICU she will receive phone call when there is a significant negative change in patient condition.
--- NOTE | 2020-02-12 14:40 | NUR ---
INCREASED SEDATION; Patient stacking breaths, tachypneic currently on maximum dosages of Versed and Diprivan. Escalated sedation to include Fentanyl per sedation protocol.
[2020-02-12] MEDS ORDERED: TPN PER PHARMACY IV NR ×6 (20:00)
--- NOTE | 2020-02-12 20:21 | NUR ---
ORAL BLEEDING MODERATE AMOUNT OF KAREEN COLOR SECRETIONS FROM ORAL CAVITY.
--- NOTE | 2020-02-12 22:00 | NUR ---
HELD LOVENOX PATIENT HAS KAREEN MIXED WITH DARK MAROON SECRETIONS FROM ORAL AMOUNT. COAGULATED BLOOD SEEN AT PICC LINE SITE. NO BLEEDING NOTED FROM ANY OTHER SITES.
[2020-02-13] VITALS (96 sets, daily range): BP systolic 88–108; BP diastolic 56–71
[2020-02-13] MEDS: MEROPENEM 1GM IVPB 100 ML IV SCH ×3 (01:15→17:00)
[2020-02-13] MEDS: MIDAZOLAM DRIP 50 mg/50mL 50 ML IV SCH (01:15)
[2020-02-13] MEDS: PROPOFOL 100 ML IV SCH (01:16)
--- NOTE | 2020-02-13 02:38 | NUR ---
Respiratory note: ATTEMPTED TO TITRATE FIO2 PER SPO2 97%. PT SPO2 DECREASED TO 83% WITH FIO2 90%. FIO2 RETURNED TO 100% WITH SPO2 92%. RN AUSTIN MADE AWARE OF ATTEMPT. WILL CONTINUE TO ATTEMPT TITRATION TOLERATED.
[2020-02-13 04:57] LABS: Basophils # (auto) 0.1 10 ^3/uL (0-0.2); Basophils % (auto) 0.7 % (0.0-2.0); Eosinophils # (auto) 0.1 10 ^3/uL (0-0.8); Eosinophils % (auto) 0.2 % (0.0-7.0); Hematocrit 46.9 % (41.0-53.0); Hemoglobin 15.7 g/dL (13.5-17.5); Lymphocytes # (auto) 1.7 10 ^3/uL (0.4-5.4); Lymphocytes % (auto) 7.6 % (10.0-50.0); Mean Corpuscular Hemoglobin 31.4 pg (28.0-32.0); Mean Corpuscular Hgb Conc. 33.6 g/dL (32.0-36.0); Mean Corpuscular Volume 93.5 fL (80.0-100.0); Monocytes # (auto) 1.2 10 ^3/uL (0-1.3); Monocytes % (auto) 5.6 % (0.0-12.0); Neutrophils # (auto) 19.1 10 ^3/uL (1.6-8.6); Neutrophils % (auto) 85.9 % (37.0-80.0); Nucleated Red Blood Cells % 0.1 %; Platelet Count (auto) 485 10^3/uL (140-450); Red Blood Cells 5.01 10^6/uL (4.5-5.90); Red Cell Distribution Width 13.4 % (11.8-14.3); White Blood Cell 22.2 10^3/uL (4.4-10.8)
[2020-02-13 05:17] LABS: Albumin 2.2 g/dL (3.4-5.0); Calcium 8.5 mg/dL (8.5-10.1); Magnesium 3.6 mg/dL (1.6-2.6); Potassium 4.2 mmol/L (3.5-5.1)
[2020-02-13 05:20] LABS: BUN/Creatinine Ratio 31.8; Bilirubin, Total 0.4 mg/dL (0.2-1.0); Phosphorus 6.1 mg/dL (2.5-4.90); Total Protein 6.4 g/dL (6.4-8.2)
[2020-02-13 05:23] LABS: Lactic Acid w/Reflex 2.1 mmol/L (0.4-2.0)
--- NOTE | 2020-02-13 05:27 | NUR ---
BLEEDING FROM ORAL CAVITY PATIENT CONTINUES TO PRODUCE KAREEN/DARK MAROON COLOR SECRETIONS FROM ORAL CAVITY THROUGHOUT THE SHIFT. SMALL AMOUNT OF WHITE THICK SECRETIONS FROM ETT TUBE.
[2020-02-13] MEDS: FUROSEMIDE 40 MG/4 ML VIAL IV SCH (06:00)
[2020-02-13] MEDS: InsuLIN REG 1unit/0.01ml Soln (100units/ml) SC SCH ×3 (06:12→18:12)
[2020-02-13] MEDS: ACCU-CHEK COMFORT CURVE STRIP VI SCH ×3 (06:14→17:19)
[2020-02-13] MEDS: BUDESONIDE (INHALATION) 0.5 MG/2 ML NEB NEB SCH ×2 (06:26→19:21)
[2020-02-13] MEDS: ALBUTEROL SULF 2.5 MG/0.5ML(0.5%) NEB SOLN NEB PRN (08:15)
[2020-02-13] MEDS: fentaNYL Drip 2500mCg/250mlNS 250 ML IV SCH ×2 (10:00→23:36)
[2020-02-13] MEDS: LINEZOLID 600MG/300ML 300 ML IV SCH ×2 (10:00→22:00)
[2020-02-13] MEDS: ENOXAPARIN SOD 100 MG/1 ML SYRINGE SC SCH ×2 (10:00→22:00)
[2020-02-13] MEDS: POTASSIUM CHL 20 Meq TABLET PO SCH (10:00)
[2020-02-13] MEDS: SODIUM CHLOR 0.9% PF (SALINE LOCK) 10ML VIAL/SYR IV SCH ×2 (10:12→22:00)
[2020-02-13] MEDS: DexAMETHasone SOD PHOS 10MG/1ML VIAL INJ IV SCH (10:12)
[2020-02-13] MEDS: THIAMINE HCL 100 MG TAB PO SCH (10:12)
[2020-02-13] MEDS: ASCORBIC ACID 1,000 MG TAB PO SCH (10:13)
[2020-02-13] MEDS: FAMOTIDINE 20 MG TAB PO SCH (10:13)
[2020-02-13] MEDS: CHOLECALCIFEROL (VITD3) 2,000 UNIT CAP PO SCH (10:13)
[2020-02-13] MEDS: ZINC SULFATE 220mg CAP or TAB PO SCH (10:13)
--- NOTE | 2020-02-13 14:00 | NUR ---
VENT CHANGES: Patient with high peak inspiratory pressures, reading 53-55. Patient repositioned, sedation increased, suctioning performed, ETT lavaged and repeat suctioning. Order entered for STAT CXR, results show stable left apical pneumo. Listed interventions resulted in no change in peak pressure reading remained unchanged. Dr. Jesus to bedside, patient changed to pressure control ventilation.
[2020-02-13] MEDS: FLUCONAZOLE 200MG/100ML 100 ML IV SCH ×2 (15:00→16:00)
[2020-02-13] MEDS: FUROSEMIDE 100 MG/10ML VIAL IV SCH (18:10)
[2020-02-14] VITALS (79 sets, daily range): BP systolic 77–115; BP diastolic 49–75
[2020-02-14] MEDS: MEROPENEM 1GM IVPB 100 ML IV SCH ×3 (01:17→17:00)
[2020-02-14 04:54] LABS: Basophils # (auto) 0 10 ^3/uL (0-0.2); Basophils % (auto) 0.2 % (0.0-2.0); Eosinophils # (auto) 0.1 10 ^3/uL (0-0.8); Eosinophils % (auto) 0.3 % (0.0-7.0); Hematocrit 44.7 % (41.0-53.0); Hemoglobin 14.9 g/dL (13.5-17.5); Lymphocytes # (auto) 2.1 10 ^3/uL (0.4-5.4); Lymphocytes % (auto) 12.4 % (10.0-50.0); Mean Corpuscular Hemoglobin 31.3 pg (28.0-32.0); Mean Corpuscular Hgb Conc. 33.3 g/dL (32.0-36.0); Mean Corpuscular Volume 94.1 fL (80.0-100.0); Monocytes # (auto) 1.2 10 ^3/uL (0-1.3); Monocytes % (auto) 7.2 % (0.0-12.0); Neutrophils # (auto) 13.7 10 ^3/uL (1.6-8.6); Neutrophils % (auto) 79.9 % (37.0-80.0); Nucleated Red Blood Cells % 0.1 %; Platelet Count (auto) 329 10^3/uL (140-450); Red Blood Cells 4.75 10^6/uL (4.5-5.90); Red Cell Distribution Width 13.5 % (11.8-14.3); White Blood Cell 17.2 10^3/uL (4.4-10.8)
[2020-02-14 05:11] LABS: Potassium 4.3 mmol/L (3.5-5.1)
[2020-02-14 05:23] LABS: Albumin 2.2 g/dL (3.4-5.0); BUN/Creatinine Ratio 36.1; Bilirubin, Total 0.3 mg/dL (0.2-1.0); Calcium 8.1 mg/dL (8.5-10.1); Total Protein 5.9 g/dL (6.4-8.2)
[2020-02-14] MEDS: FUROSEMIDE 100 MG/10ML VIAL IV SCH (06:00)
[2020-02-14] MEDS: ACCU-CHEK COMFORT CURVE STRIP VI SCH ×5 (06:00→23:38)
[2020-02-14] MEDS: InsuLIN REG 1unit/0.01ml Soln (100units/ml) SC SCH ×5 (06:00→23:39)
[2020-02-14] MEDS: ALBUTEROL SULF 2.5 MG/0.5ML(0.5%) NEB SOLN NEB PRN ×2 (06:40→21:27)
[2020-02-14] MEDS: BUDESONIDE (INHALATION) 0.5 MG/2 ML NEB NEB SCH ×2 (06:40→19:51)
[2020-02-14] MEDS: MIDAZOLAM DRIP 50 mg/50mL 50 ML IV SCH (06:55)
[2020-02-14] MEDS: NOREPINEPHRINE 8 MG/250ML KIT 250 ML IV SCH ×2 (08:00→20:16)
[2020-02-14] MEDS: PROPOFOL 100 ML IV SCH (08:00)
[2020-02-14] MEDS: FLUCONAZOLE 200MG/100ML 100 ML IV SCH ×2 (10:00→11:00)
[2020-02-14] MEDS: ENOXAPARIN SOD 100 MG/1 ML SYRINGE SC SCH ×2 (10:00→22:00)
--- NOTE | 2020-02-14 10:03 | NUR ---
VENT CHANGES: Dr. Jesus at bedside, orders received for change in vent settings. RR increased to 26.
[2020-02-14] MEDS: SODIUM CHLOR 0.9% PF (SALINE LOCK) 10ML VIAL/SYR IV SCH ×2 (10:14→22:00)
[2020-02-14] MEDS: THIAMINE HCL 100 MG TAB PO SCH (10:14)
[2020-02-14] MEDS: ASCORBIC ACID 1,000 MG TAB PO SCH (10:14)
[2020-02-14] MEDS: FAMOTIDINE 20 MG TAB PO SCH (10:14)
[2020-02-14] MEDS: ZINC SULFATE 220mg CAP or TAB PO SCH (10:14)
[2020-02-14] MEDS: CHOLECALCIFEROL (VITD3) 2,000 UNIT CAP PO SCH (10:14)
[2020-02-14] MEDS: DexAMETHasone SOD PHOS 10MG/1ML VIAL INJ IV SCH (10:14)
[2020-02-14 10:23] LABS: Protein, Urine 88.2 mg/dL (0.0-11.9)
[2020-02-14] MEDS: LINEZOLID 600MG/300ML 300 ML IV SCH ×2 (11:00→22:00)
--- NOTE | 2020-02-14 15:00 | NUR ---
Nutrition Consult/Followup Notes Wt: 83.9 kg Pt is positive for COVID, in isolation now intubated sedated with propofol at 26.28 ml/hr providing 694 kcal from lipids. Pt was receiving TPN, with order d/c now. Consider restarting pt on TPN or TF if pt GI is accessible. Est energy needs 1565-6480 kcal (18-20 kcal/kg BW 99.2kg) Est protein needs 73-95g (1-1.3g/kg IBW 73kg). Will monitor and reassess prn. LABS: 02/10: TG 424 H, today: BUN 74H, Creat 2.05H, Alb 2.2L, Ca 8.1L, GLUC 148H GI: Pt had 1 BM 02/11 per RN doc BS: 11 high risk. Refer to wound assessment report for further details PES: Obesity r/t caloric intake in excess of needs aeb pt with a BMI of 32.3kg/m2 Comments Will continue to monitor NPO status, skin status, pertinent labs and weight trends. Will f/u in 2-3 days 1) Consider Jevity 1.2 at a goal rate of 70 ml/hr or TPN if GI is not accessible 2) advance diet as medically feasible. 3) Refer pt to OPD on DC. 4) Continue current plan of care
[2020-02-14] MEDS ORDERED: Glucerna 1.2 Cal 1Liter BOTTLE GT SCH (16:15)
[2020-02-15] VITALS (91 sets, daily range): BP systolic 81–136; BP diastolic 53–93
[2020-02-15] MEDS: MEROPENEM 1GM IVPB 100 ML IV SCH ×3 (01:09→16:48)
[2020-02-15 04:55] LABS: Basophils # (auto) 0 10 ^3/uL (0-0.2); Basophils % (auto) 0.1 % (0.0-2.0); Eosinophils # (auto) 0 10 ^3/uL (0-0.8); Eosinophils % (auto) 0.1 % (0.0-7.0); Hematocrit 42.6 % (41.0-53.0); Hemoglobin 14.5 g/dL (13.5-17.5); Lymphocytes # (auto) 1.4 10 ^3/uL (0.4-5.4); Lymphocytes % (auto) 9.6 % (10.0-50.0); Mean Corpuscular Hemoglobin 31.6 pg (28.0-32.0); Mean Corpuscular Hgb Conc. 34.1 g/dL (32.0-36.0); Mean Corpuscular Volume 92.8 fL (80.0-100.0); Monocytes # (auto) 0.4 10 ^3/uL (0-1.3); Monocytes % (auto) 3.1 % (0.0-12.0); Neutrophils # (auto) 12.4 10 ^3/uL (1.6-8.6); Neutrophils % (auto) 87.1 % (37.0-80.0); Platelet Count (auto) 323 10^3/uL (140-450); Red Blood Cells 4.59 10^6/uL (4.5-5.90); Red Cell Distribution Width 13.2 % (11.8-14.3); White Blood Cell 14.3 10^3/uL (4.4-10.8)
[2020-02-15 05:14] LABS: Potassium 4.2 mmol/L (3.5-5.1)
[2020-02-15 05:24] LABS: Albumin 2.2 g/dL (3.4-5.0); BUN/Creatinine Ratio 38.2; Bilirubin, Total 0.4 mg/dL (0.2-1.0); Total Protein 5.6 g/dL (6.4-8.2)
[2020-02-15] MEDS: ACCU-CHEK COMFORT CURVE STRIP VI SCH ×3 (05:35→17:21)
[2020-02-15] MEDS: NOREPINEPHRINE 8 MG/250ML KIT 250 ML IV SCH (05:37)
[2020-02-15] MEDS: InsuLIN REG 1unit/0.01ml Soln (100units/ml) SC SCH ×3 (06:46→17:21)
[2020-02-15] MEDS: fentaNYL Drip 2500mCg/250mlNS 250 ML IV SCH (07:51)
[2020-02-15] MEDS: MIDAZOLAM DRIP 50 mg/50mL 50 ML IV SCH (07:52)
[2020-02-15] MEDS: PROPOFOL 100 ML IV SCH (07:52)
[2020-02-15] MEDS: FLUCONAZOLE 200MG/100ML 100 ML IV SCH ×2 (09:30→10:01)
[2020-02-15] MEDS: FUROSEMIDE 100 MG/10ML VIAL IV SCH (10:00)
[2020-02-15] MEDS: THIAMINE HCL 100 MG TAB PO SCH (10:00)
[2020-02-15] MEDS: ZINC SULFATE 220mg CAP or TAB PO SCH (10:00)
[2020-02-15] MEDS: BUDESONIDE (INHALATION) 0.5 MG/2 ML NEB NEB SCH ×2 (10:00→19:47)
[2020-02-15] MEDS: DexAMETHasone SOD PHOS 10MG/1ML VIAL INJ IV SCH (10:00)
[2020-02-15] MEDS: FAMOTIDINE 20 MG TAB PO SCH (10:00)
[2020-02-15] MEDS: CHOLECALCIFEROL (VITD3) 2,000 UNIT CAP PO SCH (10:00)
[2020-02-15] MEDS: LINEZOLID 600MG/300ML 300 ML IV SCH ×2 (10:00→21:50)
[2020-02-15] MEDS: SODIUM CHLOR 0.9% PF (SALINE LOCK) 10ML VIAL/SYR IV SCH ×2 (10:00→21:56)
[2020-02-15] MEDS: ENOXAPARIN SOD 100 MG/1 ML SYRINGE SC SCH ×2 (10:00→21:56)
[2020-02-15] MEDS: ASCORBIC ACID 1,000 MG TAB PO SCH (10:00)
--- NOTE | 2020-02-15 10:00 | NUR ---
Respiratory note: PEEP DECREASED TO [address] JANE
--- NOTE | 2020-02-15 19:00 | NUR ---
RECEIVED REPORT FROM KAYLIN RN, PT. IN BED ORALLY INTUBATED WITH ETT #8.0, 22 CM @ THE LIP, CONNECTED TO A MECHANICAL VENT @ ORDERED SETTINGS, OGT INTACT, ON CONTINUOUS FEEDS @ 10 ML / HR, RT. SUBCUTANEOUS EMPHYSEMA NOTED ON UPPER CHEST TO THE NECK AREA, LT SIDE IS MORE THAN THE RIGHT. UPPER ARM PICC DL INTACT, ON LEVO, VERSED AND FENTANYL DRIPS, INFUSING WELL. VALLE IN AND DRAINING WELL, BLACKISH DTI ON THE NOSE, OPEN TO AIR. 1999 FAMILY MEMBER CALLED FOR INFO,WITH THE CORRECT PASSWORD WHEN VERIFIED, UPDATES GIVEN.
[2020-02-15] MEDS: ALBUTEROL SULF 2.5 MG/0.5ML(0.5%) NEB SOLN NEB PRN (19:47)
[2020-02-16] VITALS (86 sets, daily range): BP systolic 91–137; BP diastolic 64–86
[2020-02-16] MEDS: ACCU-CHEK COMFORT CURVE STRIP VI SCH ×4 (00:22→17:16)
[2020-02-16] MEDS: InsuLIN REG 1unit/0.01ml Soln (100units/ml) SC SCH ×4 (00:24→17:15)
[2020-02-16] MEDS: MEROPENEM 1GM IVPB 100 ML IV SCH ×3 (01:30→17:20)
[2020-02-16 04:33] LABS: Basophils # (auto) 0.1 10 ^3/uL (0-0.2); Basophils % (auto) 0.4 % (0.0-2.0); Eosinophils # (auto) 0 10 ^3/uL (0-0.8); Hematocrit 41.5 % (41.0-53.0); Hemoglobin 13.6 g/dL (13.5-17.5); Lymphocytes # (auto) 0.9 10 ^3/uL (0.4-5.4); Lymphocytes % (auto) 5.2 % (10.0-50.0); Mean Corpuscular Hemoglobin 30.8 pg (28.0-32.0); Mean Corpuscular Hgb Conc. 32.8 g/dL (32.0-36.0); Mean Corpuscular Volume 93.8 fL (80.0-100.0); Monocytes # (auto) 0.8 10 ^3/uL (0-1.3); Monocytes % (auto) 4.6 % (0.0-12.0); Neutrophils # (auto) 15.3 10 ^3/uL (1.6-8.6); Neutrophils % (auto) 89.8 % (37.0-80.0); Platelet Count (auto) 275 10^3/uL (140-450); Red Blood Cells 4.42 10^6/uL (4.5-5.90); Red Cell Distribution Width 13.4 % (11.8-14.3)
[2020-02-16 05:09] LABS: Potassium 4.2 mmol/L (3.5-5.1)
[2020-02-16 05:16] LABS: BUN/Creatinine Ratio 40.5; Calcium 7.9 mg/dL (8.5-10.1); Magnesium 2.8 mg/dL (1.6-2.6)
--- NOTE | 2020-02-16 07:15 | NUR ---
REPORT GIVEN TO DAY RADAMES GARCIA.
[2020-02-16] MEDS: fentaNYL Drip 2500mCg/250mlNS 250 ML IV SCH (08:00)
[2020-02-16] MEDS: PROPOFOL 100 ML IV SCH (08:00)
[2020-02-16] MEDS: NOREPINEPHRINE 8 MG/250ML KIT 250 ML IV SCH (08:00)
[2020-02-16] MEDS: FLUCONAZOLE 200MG/100ML 100 ML IV SCH ×2 (09:51→14:41)
[2020-02-16] MEDS: LINEZOLID 600MG/300ML 300 ML IV SCH ×2 (09:52→20:38)
[2020-02-16] MEDS: DexAMETHasone SOD PHOS 10MG/1ML VIAL INJ IV SCH (09:55)
[2020-02-16] MEDS: FAMOTIDINE 20 MG TAB PO SCH (09:55)
[2020-02-16] MEDS: FUROSEMIDE 100 MG/10ML VIAL IV SCH (09:55)
[2020-02-16] MEDS: THIAMINE HCL 100 MG TAB PO SCH (09:56)
[2020-02-16] MEDS: CHOLECALCIFEROL (VITD3) 2,000 UNIT CAP PO SCH (09:57)
[2020-02-16] MEDS: ASCORBIC ACID 1,000 MG TAB PO SCH (09:57)
[2020-02-16] MEDS: ZINC SULFATE 220mg CAP or TAB PO SCH (09:58)
[2020-02-16] MEDS: SODIUM CHLOR 0.9% PF (SALINE LOCK) 10ML VIAL/SYR IV SCH ×2 (09:58→20:39)
[2020-02-16] MEDS: ENOXAPARIN SOD 100 MG/1 ML SYRINGE SC SCH ×3 (10:00→22:00)
[2020-02-16] MEDS: BUDESONIDE (INHALATION) 0.5 MG/2 ML NEB NEB SCH ×2 (10:00→18:50)
--- NOTE | 2020-02-16 11:06 | NUR ---
Nutrition Followup Notes Wt: 85.0 kg Pt is positive for COVID, in isolation now intubated sedated with propofol at 26.28 ml/hr providing 694 kcal from lipids. pt is currently NPO with EN support with Glucerna @ 10 ml/hr providing 288 kcals. pt with inadequate EN support Est energy needs 5421-0850 kcal (18-20 kcal/kg BW 99.2kg) Est protein needs 73-95g (1-1.3g/kg IBW 73kg). Will monitor and reassess prn. LABS: BUN 64 H CREAT 1.58 H CA 7.9 L ALB 2.6 L GI: Pt had 1 BM 02/11 per RN doc BS: 13 mod risk. Refer to wound assessment report for further details PES: Obesity r/t caloric intake in excess of needs aeb pt with a BMI of 32.3kg/m2 Comments Will continue to monitor NPO status, EN tolerance, skin status, pertinent labs and weight trends. Will f/u in 2-3 days 1) Consider Jevity 1.2 at a goal rate of 65 ml/hr or TPN if GI is not accessible 2) advance diet as medically feasible. 3) Refer pt to OPD on DC. 4) Continue current plan of care
--- NOTE | 2020-02-16 11:30 | NUR ---
FIO2 DECREASED TO 70% PER MD JANE AND CALL RT FOR ABG. PT ON PORTABLE MONITOR POX 94%. PRIMARY MD AWARE. NO NEW ORDERS.
[2020-02-16] MEDS: MIDAZOLAM DRIP 50 mg/50mL 50 ML IV SCH ×2 (11:35→20:00)
--- NOTE | 2020-02-16 14:00 | NUR ---
TUBE FEEDING HELD MOMENTARILY, RESIDUAL WHEN ASPIRATED. WILL REASSESS.
[2020-02-16] MEDS: ALBUTEROL SULF 2.5 MG/0.5ML(0.5%) NEB SOLN NEB PRN ×2 (14:12→18:50)
--- NOTE | 2020-02-16 19:15 | NUR ---
Opening Shift Note Assumed care of intubated and sedated patient, no S/S of distress noted, current vent settings- PC 28, rated 26, Fio2 100%, peep 12, current sats 97%, tolerating vent, current drips- levo @4, versed @8, and fentanyl @175, wren cath draining to gravity with yellow urine, bed low to floor, continue to monitor.
--- NOTE | 2020-02-16 21:30 | NUR ---
Cooling measures implemented d/t low grade temp 99.4, will continue to monitor.
--- NOTE | 2020-02-16 21:30 | NUR ---
Patient tube feeding held at this time due to finding residual at 60ml, will continue to monitor.
--- NOTE | 2020-02-16 21:45 | NUR ---
Upon physical assessment, noted some non-pitting edema to BUE 3+, and a yellow metal ring band intact on patients left hand ring finger, ring finger cap refill brisk <3 sec and warm to touch, pink in color, will continue to monitor.
--- NOTE | 2020-02-16 22:00 | NUR ---
Lovenox held d/t noted moderate amount of oral bleeding rust and bright red in color when performing oral care, no bleeding noted at any site on body or face at this time, continue to monitor.
[2020-02-17] VITALS (75 sets, daily range): BP systolic 84–134; BP diastolic 49–91
[2020-02-17] MEDS: InsuLIN REG 1unit/0.01ml Soln (100units/ml) SC SCH ×4 (00:30→18:00)
[2020-02-17] MEDS: ACCU-CHEK COMFORT CURVE STRIP VI SCH ×4 (01:01→18:00)
[2020-02-17] MEDS: MEROPENEM 1GM IVPB 100 ML IV SCH ×3 (01:01→17:00)
[2020-02-17] MEDS: MIDAZOLAM DRIP 50 mg/50mL 50 ML IV SCH ×3 (01:50→21:34)
--- NOTE | 2020-02-17 01:58 | NUR ---
AM Care Notes Patient given bed bath using CHG wipes and warm soapy wash cloths used to clean face and pericare. Linen and gown change provided to patient, skin re-assessed at this time and no changes noted, repositioned for comfort, bed low to floor, continue to monitor.
--- NOTE | 2020-02-17 05:00 | NUR ---
Patient feeding resumed at this time d/t no residual noted with OGT placement verified by auscultation, will continue to monitor
[2020-02-17 06:19] LABS: Basophils # (auto) 0 10 ^3/uL (0-0.2); Basophils % (auto) 0.2 % (0.0-2.0); Eosinophils # (auto) 0 10 ^3/uL (0-0.8); Hematocrit 40.2 % (41.0-53.0); Hemoglobin 13.5 g/dL (13.5-17.5); Lymphocytes % (auto) 5.4 % (10.0-50.0); Mean Corpuscular Hemoglobin 31.3 pg (28.0-32.0); Mean Corpuscular Hgb Conc. 33.5 g/dL (32.0-36.0); Mean Corpuscular Volume 93.4 fL (80.0-100.0); Monocytes # (auto) 0.9 10 ^3/uL (0-1.3); Monocytes % (auto) 4.9 % (0.0-12.0); Neutrophils # (auto) 16.1 10 ^3/uL (1.6-8.6); Neutrophils % (auto) 89.5 % (37.0-80.0); Platelet Count (auto) 253 10^3/uL (140-450); Red Cell Distribution Width 13.5 % (11.8-14.3)
[2020-02-17 06:34] LABS: Potassium 4.4 mmol/L (3.5-5.1)
[2020-02-17] MEDS: BUDESONIDE (INHALATION) 0.5 MG/2 ML NEB NEB SCH ×2 (06:40→19:40)
[2020-02-17] MEDS: fentaNYL Drip 2500mCg/250mlNS 250 ML IV SCH ×2 (06:45→21:55)
[2020-02-17 07:23] LABS: BUN/Creatinine Ratio 48.6; Calcium 8.3 mg/dL (8.5-10.1); Magnesium 2.9 mg/dL (1.6-2.6)
--- NOTE | 2020-02-17 07:30 | NUR ---
Report given and care endorsed to AM nurse.
[2020-02-17] MEDS: PROPOFOL 100 ML IV SCH (08:00)
--- NOTE | 2020-02-17 08:15 | NUR ---
ASSUMED CARE OF PATIENT. TF REMAINS INFUSING AT SLOW RATE - UNABLE TO RUN AT EXACT RATE DUE TO NO TUBE FEEDING PUMPS AVAILABLE. NO TF RESIDUAL NOTED, PLACEMENT VERIFIED WITH AIR BOLUS. SEE IV SPREAD SHEET FOR IV GTTS SEE VS FLOW SHEET FOR VS. VENT CONT'D AT CHARTED SETTINGS.
[2020-02-17] MEDS: ENOXAPARIN SOD 100 MG/1 ML SYRINGE SC SCH (10:00)
--- NOTE | 2020-02-17 10:00 | NUR ---
DR ZAZUETA VISITS AND EXAMINES PATIENT Addendum: 02/17/20 at 2049 by Nel Johnston RN ORDERS RECEIVED
--- NOTE | 2020-02-17 10:20 | NUR ---
Respiratory note: TITRATED FIO2 TO 90% AT THIS TIME. RN NAOMY INFORMED.
[2020-02-17] MEDS: ASCORBIC ACID 1,000 MG TAB PO SCH (10:45)
[2020-02-17] MEDS: FAMOTIDINE 20 MG TAB PO SCH (10:45)
[2020-02-17] MEDS: THIAMINE HCL 100 MG TAB PO SCH (10:45)
[2020-02-17] MEDS: CHOLECALCIFEROL (VITD3) 2,000 UNIT CAP PO SCH (10:45)
[2020-02-17] MEDS: SODIUM CHLOR 0.9% PF (SALINE LOCK) 10ML VIAL/SYR IV SCH ×2 (10:45→21:57)
[2020-02-17] MEDS: ZINC SULFATE 220mg CAP or TAB PO SCH (10:45)
--- NOTE | 2020-02-17 11:00 | NUR ---
DR LOZANO VISIT - ORDERS RECEIVED.
[2020-02-17] MEDS: DOPamine 1600MCG/ML D5W 250 ML IV SCH ×2 (11:17→13:00)
[2020-02-17] MEDS: FUROSEMIDE 100 MG/10ML VIAL IV SCH (11:26)
[2020-02-17] MEDS: FLUCONAZOLE 200MG/100ML 100 ML IV SCH ×2 (12:00→13:00)
[2020-02-17] MEDS ORDERED: PANTOPRAZOLE 40 MG/10 ML VIAL INJ IV ONE (13:00)
[2020-02-17] MEDS: NOREPINEPHRINE 8 MG/250ML KIT 250 ML IV SCH (14:00)
--- NOTE | 2020-02-17 14:35 | NUR ---
PATIENT'S EMMANUEL PHONES - UPDATED ON PATIENT CONDITION - VERBALIZED UNDERSTANDING, TEARFUL- SUPPORT OFFERED.
[2020-02-17] MEDS: LINEZOLID 600MG/300ML 300 ML IV SCH ×2 (15:00→21:57)
--- NOTE | 2020-02-17 19:00 | NUR ---
UNABLE TO IMPORT VS OR RETRIEVE VS FROM PORTABLE MONITOR, ONLY BP READINGS FROM SHIFT
[2020-02-17] MEDS: ALBUTEROL SULF 2.5 MG/0.5ML(0.5%) NEB SOLN NEB PRN (19:40)
--- NOTE | 2020-02-17 21:24 | NUR ---
BRO.CALLED, UPDATES GIVEN AFTER VERIFICATION OF PW
[2020-02-17] MEDS: PANTOPRAZOLE 40 MG/10 ML VIAL INJ IV SCH (21:57)
--- NOTE | 2020-02-17 23:30 | NUR ---
PAGED THE RT, SATS IN THE 80'S SUCTIONING OF SECRETIONS DONE PRN, FiO2 WAS INCREASED TO 100% BY RT KYLE.
--- NOTE | 2020-02-17 23:50 | NUR ---
PAGED THE HOSPITALIST FOR INCREASED HR, 140'S
[2020-02-18] VITALS (50 sets, daily range): BP systolic 39–110; BP diastolic 23–77
[2020-02-18] MEDS: ACCU-CHEK COMFORT CURVE STRIP VI SCH ×3 (00:29→11:20)
[2020-02-18] MEDS: InsuLIN REG 1unit/0.01ml Soln (100units/ml) SC SCH ×3 (00:31→12:00)
[2020-02-18] MEDS: MEROPENEM 1GM IVPB 100 ML IV SCH ×2 (01:09→10:58)
--- NOTE | 2020-02-18 01:32 | NUR ---
REPAGED THE HOSPITALIST RE: TACHYCARDIA, PT ON LEVOPHED AND DOPAMINE
[2020-02-18] MEDS ORDERED: PHENYLEPHRINE IV 250 ML IV SCH (03:00)
--- NOTE | 2020-02-18 04:30 | NUR ---
MORNING CARE DONE MODERATE AMOUNT OF LOOSE STOOLS NOTED, CLEANSED AND KEPT DRY AND COMFORTABLE. REPOSITIONED FOR COMFORT.
[2020-02-18 05:29] LABS: Anion Gap 9 (5-15); BUN/Creatinine Ratio 36.1; Calcium 7.8 mg/dL (8.5-10.1); Carbon Dioxide 30 mmol/L (21-32); Chloride 102 mmol/L (98-107); GFR African American 31 mL/min; GFR Non-African American 26 mL/min; Glucose 96 mg/dL (74-106); Potassium 4.5 mmol/L (3.5-5.1); Sodium 141 mmol/L (136-145)
[2020-02-18 06:09] LABS: Blood Urea Nitrogen 99 mg/dL (7-18)
[2020-02-18 06:23] LABS: Basophils # (auto) 0 10 ^3/uL (0-0.2); Basophils % (auto) 0.2 % (0.0-2.0); Eosinophils # (auto) 0 10 ^3/uL (0-0.8); Eosinophils % (auto) 0.2 % (0.0-7.0); Hematocrit 40.6 % (41.0-53.0); Hemoglobin 13.6 g/dL (13.5-17.5); Lymphocytes # (auto) 0.8 10 ^3/uL (0.4-5.4); Lymphocytes % (auto) 3.6 % (10.0-50.0); Mean Corpuscular Hemoglobin 31.6 pg (28.0-32.0); Mean Corpuscular Hgb Conc. 33.5 g/dL (32.0-36.0); Mean Corpuscular Volume 94.3 fL (80.0-100.0); Monocytes # (auto) 0.8 10 ^3/uL (0-1.3); Monocytes % (auto) 3.6 % (0.0-12.0); Neutrophils # (auto) 20.6 10 ^3/uL (1.6-8.6); Neutrophils % (auto) 92.4 % (37.0-80.0); Nucleated Red Blood Cells % 0.1 %; Platelet Count (auto) 226 10^3/uL (140-450); Red Cell Distribution Width 13.6 % (11.8-14.3); White Blood Cell 22.3 10^3/uL (4.4-10.8)
[2020-02-18] MEDS: ALBUTEROL SULF 2.5 MG/0.5ML(0.5%) NEB SOLN NEB PRN (06:55)
[2020-02-18] MEDS: BUDESONIDE (INHALATION) 0.5 MG/2 ML NEB NEB SCH (06:55)
[2020-02-18] MEDS ORDERED: PHENYLEPHRINE INJ 80 MG in SODIUM CHL 0.9% 250 ML IV SCH (07:15)
[2020-02-18] MEDS: PROPOFOL 100 ML IV SCH (08:00)
[2020-02-18] MEDS: NOREPINEPHRINE 8 MG/250ML KIT 250 ML IV SCH (09:20)
[2020-02-18] MEDS: MIDAZOLAM DRIP 50 mg/50mL 50 ML IV SCH (09:30)
[2020-02-18] MEDS: FUROSEMIDE 100 MG/10ML VIAL IV SCH (10:00)
[2020-02-18] MEDS ORDERED: VASOPRESSIN 50 UNITS in D5W 5% 247.5 ML IV SCH (10:30)
[2020-02-18] MEDS ORDERED: VASOPRESSIN 20 UNIT/ML ONE (10:30)
[2020-02-18] MEDS: SODIUM CHLOR 0.9% PF (SALINE LOCK) 10ML VIAL/SYR IV SCH (11:01)
[2020-02-18] MEDS: PANTOPRAZOLE 40 MG/10 ML VIAL INJ IV SCH (11:01)
[2020-02-18] MEDS: ASCORBIC ACID 1,000 MG TAB PO SCH (11:02)
[2020-02-18] MEDS: ZINC SULFATE 220mg CAP or TAB PO SCH (11:02)
[2020-02-18] MEDS: THIAMINE HCL 100 MG TAB PO SCH (11:02)
[2020-02-18] MEDS: CHOLECALCIFEROL (VITD3) 2,000 UNIT CAP PO SCH (11:02)
[2020-02-18] MEDS: FLUCONAZOLE 200MG/100ML 100 ML IV SCH (12:25)
--- NOTE | 2020-02-18 14:46 | NUR ---
Nutrition Followup Notes Wt: 87.1 kg Pt is positive for COVID, in isolation now intubated sedated with propofol held, pt now DNR per pt spouse's wishes. pt is currently NPO with EN support with Glucerna @ 30 ml/hr, pt was provided 100 ml 02/17 so far per Rn note. Pt HgbA1C WNL consider changing TF to Jevity 1.2. Est energy needs 8313-3492 kcal (18-20 kcal/kg BW 99.2kg) Est protein needs 73-95g (1-1.3g/kg IBW 73kg). Will monitor and reassess prn. LABS: BUN 99H, Creat 2.74H, Alb 2.2L, Ca 7.8L GI: Pt had 1 BM 02/17 per RN doc BS: 12 high risk. Refer to wound assessment report for further details PES: Obesity r/t caloric intake in excess of needs aeb pt with a BMI of 32.3kg/m2 Comments Will continue to monitor NPO status, EN tolerance, skin status, pertinent labs and weight trends. Will f/u in 2-3 days 1) Consider Jevity 1.2 at a goal rate of 65 ml/hr or TPN if GI is not accessible 2) advance diet as medically feasible. 3) Refer pt to OPD on DC. 4) Continue current plan of care
--- NOTE | 2020-02-18 19:32 | NUR ---
Upon arrival of shift noted BP 52/36. Levophed and Phenylephrine infusing for hemodynamic stability. Titrated up to max dose and bp still low. Contacted Dr. Myers, covering for Dr. Jesus and made her aware of low BP Vasopressin ordered and started per protocol. Dr. Myers phoned Doc Lopez and made her aware of his deteriorating condition and agreed to make him a DNR status. Continued to deteriorate and and pronounced at [address] Myers. Call out to [facility] at 1322 and patient declined due to Covid-19 positive. Call out to [employer] Program[employer] at 1312. Mandy Paul, warehouse freight handler made me aware that the [facility] Cor[facility] will release the body due to overwhelming calls. She spoke with blackjack supervisor night supervisor Maite Gaona. The mortuary will report once picked up. Spoke with Doc and she confirmed that the mortuary will be [facility]. Spoke with Juliette from mortuary and confirmed that family had made arrangements with their facility. will be picking up belongings. One patiño sweat jacket, one pair of white socks, one white necklace with a cross and tags, one white yellow ring and one white/brown ring with 5 white stones. Post mortem care was done earlier and awaiting pharmacy picking tech.
== END 2020-02-18 12:40 | DRG 870 ==
LOC: ER 09:06 → TELE 09:07 → TELE-E-ADS 01-26 22:55 → ICU WEST 02-12 07:10
PROVIDERS: ADMIT Nurse Practitioner Acute Care; ATTEND Internal Medicine
PROC: XW13325 Transfusion of Convalescent Plasma (Nonautologous) into Peripheral Vein, Percutaneous Approach, New Technology Group 5 (ICD-10-PCS; 2020-01-27)
PROC: XW033E5 Introduction of Remdesivir Anti-infective into Peripheral Vein, Percutaneous Approach, New Technology Group 5 (ICD-10-PCS; 2020-01-30)
PROC: 5A1955Z Respiratory Ventilation, Greater than 96 Consecutive Hours (ICD-10-PCS; 2020-01-31)
PROC: 0BH17EZ Insertion of Endotracheal Airway into Trachea, Via Natural or Artificial Opening (ICD-10-PCS; 2020-01-31)
PROC: XW033H5 Introduction of Tocilizumab into Peripheral Vein, Percutaneous Approach, New Technology Group 5 (ICD-10-PCS; 2020-02-08)
PROC: 5A09457 Assistance with Respiratory Ventilation, 24-96 Consecutive Hours, Continuous Positive Airway Pressure (ICD-10-PCS; 2020-02-08)
PROC: 02H633Z Insertion of Infusion Device into Right Atrium, Percutaneous Approach (ICD-10-PCS; principal; 2020-02-11)
DX: A41.89 Other specified sepsis (principal); J96.01 Acute respiratory failure with hypoxia; U07.1 COVID-19; R65.21 Severe sepsis with septic shock; J12.89 Other viral pneumonia; N17.0 Acute kidney failure with tubular necrosis; J44.1 Chronic obstructive pulmonary disease with (acute) exacerbation; J44.0 Chronic obstructive pulmonary disease with (acute) lower respiratory infection; D68.59 Other primary thrombophilia; J93.9 Pneumothorax, unspecified; I47.2 Ventricular tachycardia; J45.901 Unspecified asthma with (acute) exacerbation; Z99.11 Dependence on respirator [ventilator] status; N40.0 Benign prostatic hyperplasia without lower urinary tract symptoms; E55.9 Vitamin D deficiency, unspecified; E78.5 Hyperlipidemia, unspecified; E66.01 Morbid (severe) obesity due to excess calories; T38.0X5A Adverse effect of glucocorticoids and synthetic analogues, initial encounter; I12.9 Hypertensive chronic kidney disease with stage 1 through stage 4 chronic kidney disease, or unspecified chronic kidney disease; N18.2 Chronic kidney disease, stage 2 (mild); X58.XXXA Exposure to other specified factors, initial encounter; E11.65 Type 2 diabetes mellitus with hyperglycemia; E88.09 Other disorders of plasma-protein metabolism, not elsewhere classified; Z90.49 Acquired absence of other specified parts of digestive tract; Z83.3 Family history of diabetes mellitus; Z87.891 Personal history of nicotine dependence; Z88.8 Allergy status to other drugs, medicaments and biological substances; Z91.02 Food additives allergy status; Z79.51 Long term (current) use of inhaled steroids; Z79.899 Other long term (current) drug therapy
CPT/HCPCS: 36415; 36569; 36600; 71045; 71275; 80048; 80053; 80061; 80307; 82040; 82306; 82570; 82728; 82805; 82962; 83036; 83605; 83615; 83735; 83880; 83935; 84100; 84133; 84156; 84300; 84443; 84478; 84484; 85025; 85379; 85610; 85730; 86141; 86704; 86706; 86708; 86803; 86850; 86900; 86901; 87040; 87070; 87077; 87086; 87205; 87340; 87426; 87804; 93306; 94002; 94003; 94640; 94660; 99291; C9113; G0378; J0330; J0696; J1100; J1450; J1815; J2185; J2250; J2405; J2543; J2704; J7060